=== PATIENT | male | born 1950 | race Caucasian/White ===

== ENCOUNTER 2018-04-18 12:44 | Emergency (ER) | payer OTHER ==
--- NOTE | 2018-04-18 13:49 | RAD REPORT ---
EXAM DESCRIPTION: RAD - Foot Left 3 View - 04/18/2018 1:34 pm CLINICAL HISTORY: Foot pain, blunt force trauma left first toe. COMPARISON: None. FINDINGS: A small 5 mm sized fracture is present at the medial base first proximal phalanx. There is a 1 mm or less of distraction. No other fracture confirmed in the first toe. There is small degenera tive spurring along the dorsal margin of the first distal phalanx base. Acute fracture at this site o r within the joint not confirmed. Contusion or edema changes surround the soft tissues. Injury to the toenail of the first toe is evide nt. No other fracture site. No dislocation or periosteal reaction. No pathologic process. Degenerativ e calcifications seen within the Achilles tendon at the attachment. No plantar spur. No air or foreign body in the soft tissues. IMPRESSION: Small fracture fragment is present 5 mm in size at the medial base first proximal phalan x.
[2018-04-18] MEDS ORDERED: HYDROCODONE/APAP 5/325 MG TAB ONE (14:29)
[2018-04-18] MEDS ORDERED: BUPIVACAINE 0.5% PF 10 ML VIAL ONE (15:20)
[2018-04-18] MEDS ORDERED: LIDOCAINE 1% 20 ML MDV ONE (15:20)
--- NOTE | 2018-04-18 16:11 | ER ---
Nurse's Notes [facility] Name: Castro Tam Age: 67 yrs Sex: Male : 1950 Arrival Date: 04/18/2018 Time: 12:51 Bed 11 Private MD: out of town, doctor Diagnosis: Contusion of left foot;Fracture of proximal phalanx of great toe;Avulsion of toenail Presentation: 04/18 13:07 Presenting complaint: Patient states: " I kicked the wall this morning." Swelling noted ph to L great toe, nail appears from bed, no bleeding noted. Transition of care: patient was not received from another setting of care. Onset of symptoms was April 18, 2018. Risk Assessment: Do you want to hurt yourself or someone else? Patient reports no desire to harm self or others. Initial Sepsis Screen: Does the patient meet any 2 criteria? No. Patient's initial sepsis screen is negative. Does the patient have a suspected source of infection? No. Patient's initial sepsis screen is negative. Care prior to arrival: None. 13:07 Method Of Arrival: Ambulatory ph 13:07 Acuity: MAXI 4 ph Historical: - Allergies: 13:10 PENICILLINS; ph 13:10 Azithromycin; ph 13:10 Clindamycin; ph 13:10 lampocil; ph - PSHx: 13:10 colon sx; Appendectomy; Knee surgery; ph - Immunization history:: Adult Immunizations unknown. - Social history:: Smoking status: Patient/guardian denies using tobacco. - Ebola Screening: : No symptoms or risks identified at this time. Screenin:17 Abuse screen: Denies threats or abuse. Denies injuries from another. Nutritional dm5 screening: No deficits noted. Tuberculosis screening: No symptoms or risk factors identified. Fall Risk None identified. Assessment: 14:29 Reassessment: Patient appears in no apparent distress at this time. Patient and/or iw family updated on plan of care and expected duration. Pain level reassessed. Patient is alert, oriented x 3, equal unlabored respirations, skin warm/dry/pink. 16:17 General: Appears in no apparent distress. comfortable, Behavior is calm, cooperative. dm5 Pain: Complains of pain in left first toe and Left first toenail Current management is with [place], marcaine, and lidocaine. Neuro: Level of Consciousness is awake, alert, obeys commands, Oriented to person, place, time. Cardiovascular: Capillary refill < 3 seconds Patient's skin is warm and dry. Respiratory: Airway is patent Respiratory effort is even, unlabored, relaxed, Respiratory pattern is regular, symmetrical. GI: No signs and/or symptoms were reported involving the gastrointestinal system. : No signs and/or symptoms were reported regarding the genitourinary system. EENT: No signs and/or symptoms were reported regarding the EENT system. Derm: Skin is pink, warm \\T\\ dry. Musculoskeletal: Circulation, motion, and sensation intact. Range of motion: intact in all extremities. Injury Description: Avulsion sustained to Left first toenail is complete. Vital Signs: 13:08 BP 157 / 77; Pulse 64; Resp 18; Temp 97.2; Pulse Ox 98% on R/A; Weight 102.06 kg; ph ED Course: 12:51 Patient arrived in ED. mr 12:51 out of town, doctor is Private Physician. mr 13:08 Triage completed. ph 13:10 Arm band placed on. ph 13:11 Pamela Quintana FNP-C is PHCP. snw 13:11 Jae Vickers MD is Attending Physician. snw 13:31 X-ray completed. Portable x-ray completed in exam room. Patient tolerated procedure jb2 well. 13:32 Foot Left 3 View XRAY In Process Unspecified. EDMS 14:05 Cheyenne Ivy, RN is Primary Nurse. iw 16:17 Patient has correct armband on for positive identification. Adult w/ patient. dm5 16:17 Assist provider with nail repair of avulsion of left great toe using excision of nail. dm5 Set up for procedure. Performed by Pamela SAUNDERS Dressed with tube gauze Xeroform Petrolatum Dressing Patient tolerated well. Patient did not have IV access during this emergency room visit. Administered Medications: 14:29 Drug: [place] 5 mg-325 mg 1 tabs Route: PO; iw 16:38 Follow up: Response: No adverse reaction; Pain is decreased dm5 14:30 Drug: Lidocaine (1 %) 5 mg {Note: administered by Pamela Quintana NP.} Route: dm5 Infiltration; 14:30 Drug: Marcaine (0.5 %) 10 ml {Note: administered by Pamela Quintana NP.} Volume: 10 dm5 ml; Route: Infiltration; 16:40 CANCELLED (wrong order): Marcaine (0.25 %) 10 ml Infiltration once dm5 Outcome: 16:11 Discharge ordered by MD. jones 16:17 Discharged to home ambulatory. dm5 16:17 Condition: good 16:17 Discharge instructions given to patient, family, Instructed on discharge instructions, follow up and referral plans. medication usage, Demonstrated understanding of instructions, follow-up care, medications, wound care, Prescriptions given X 2. 16:45 Patient left the ED. dm5 Signatures: Dispatcher [employer] EDMS Lexus Coronado, RN RN dm5 Pamela Quintana, FACULTY DEAN-C FACULTY DEAN-Halie Mckeon mr Mayers, Anthony albarran2 Cheyenne Ivy, RN Candelaria Mittal RN RN ph
--- NOTE | 2018-04-18 16:11 | EDPHYS ---
Physician Documentation [facility] Name: Castro Tam Age: 67 yrs Sex: Male : 1950 Arrival Date: 04/18/2018 Time: 12:51 Bed 11 Private MD: out of town, doctor ED Physician Jae Vickers HPI: 04/18 13:43 This 67 yrs old Male presents to ER via Ambulatory with complaints of Toe snw Injury. 13:43 The patient presents with an injury, pain, that is acute. The complaints affect the snw left foot. Context: The problem was sustained at home, resulted from the patient kicking, a wall, the patient can fully bear weight, the patient is able to ambulate. Onset: The symptoms/episode began/occurred suddenly, at 06:00, and became persistent today. Associated signs and symptoms: The patient has no apparent associated signs or symptoms. Severity of symptoms: At their worst the symptoms were moderate. The patient has experienced similar episodes in the past. The patient has not recently seen a physician. Historical: - Allergies: 13:10 PENICILLINS; ph 13:10 Azithromycin; ph 13:10 Clindamycin; ph 13:10 lampocil; ph - PSHx: 13:10 colon sx; Appendectomy; Knee surgery; ph - Immunization history:: Adult Immunizations unknown. - Social history:: Smoking status: Patient/guardian denies using tobacco. - Ebola Screening: : No symptoms or risks identified at this time. ROS: 13:43 Constitutional: Negative for fever, chills, and weight loss, Eyes: Negative for injury, snw pain, redness, and discharge, ENT: Negative for injury, pain, and discharge, Neck: Negative for injury, pain, and swelling, Cardiovascular: Negative for chest pain, palpitations, and edema, Respiratory: Negative for shortness of breath, cough, wheezing, and pleuritic chest pain, Abdomen/GI: Negative for abdominal pain, nausea, vomiting, diarrhea, and constipation, Back: Negative for injury and pain, : Negative for injury, bleeding, discharge, and swelling, Skin: Negative for injury, rash, and discoloration, Neuro: Negative for headache, weakness, numbness, tingling, and seizure. 13:43 MS/extremity: Positive for injury or acute deformity, contusion, tenderness, lifted toenail up. Exam: 13:41 Constitutional: This is a well developed, well nourished patient who is awake, alert, snw and in no acute distress. Head/Face: Normocephalic, atraumatic. Eyes: Pupils equal round and reactive to light, extra-ocular motions intact. Lids and lashes normal. Conjunctiva and sclera are non-icteric and not injected. Cornea within normal limits. Periorbital areas with no swelling, redness, or edema. ENT: Nares patent. No nasal discharge, no septal abnormalities noted. Tympanic membranes are normal and external auditory canals are clear. Oropharynx with no redness, swelling, or masses, exudates, or evidence of obstruction, uvula midline. Mucous membranes moist. Neck: Trachea midline, no thyromegaly or masses palpated, and no cervical lymphadenopathy. Supple, full range of motion without nuchal rigidity, or vertebral point tenderness. No Meningismus. Chest/axilla: Normal chest wall appearance and motion. Nontender with no deformity. No lesions are appreciated. Cardiovascular: Regular rate and rhythm with a normal S1 and S2. No gallops, murmurs, or rubs. Normal PMI, no JVD. No pulse deficits. Respiratory: Lungs have equal breath sounds bilaterally, clear to auscultation and percussion. No rales, rhonchi or wheezes noted. No increased work of breathing, no retractions or nasal flaring. Abdomen/GI: Soft, non-tender, with normal bowel sounds. No distension or tympany. No guarding or rebound. No evidence of tenderness throughout. Back: No spinal tenderness. No costovertebral tenderness. Full range of motion. Skin: Warm, dry with normal turgor. Normal color with no rashes, no lesions, and no evidence of cellulitis. Neuro: Awake and alert, GCS 15, oriented to person, place, time, and situation. Cranial nerves II-XII grossly intact. Motor strength 5/5 in all extremities. Sensory grossly intact. Cerebellar exam normal. Normal gait. Psych: Awake, alert, with orientation to person, place and time. Behavior, mood, and affect are within normal limits. 13:41 Musculoskeletal/extremity: Extremities: grossly normal except: noted in the left foot, kicked wall and toenail from nailbed, bleeding controlled, tender, toenail thick and longer than end of toe: contusion, ROM: no acute changes, Circulation is intact in all extremities. Sensation intact. Vital Signs: 13:08 BP 157 / 77; Pulse 64; Resp 18; Temp 97.2; Pulse Ox 98% on R/A; Weight 102.06 kg; ph Procedures: 16:43 Foreign Body Removal: great toenail removed, no bleeding, pt tolerated well, xeroform snw placed on area and tube gauze dressing placed. Post op shoe placed. Nerve block: (digital) of left first toe Medication: Lidocaine 1% without epinephrine Marcaine 0.5%, Amount: 8 mls were injected, Effect: the patient has resolution of the pain, Set up for procedure. Performed by Pamela SAUNDERS Patient tolerated well. MDM: 13:11 Patient medically screened. snw 16:12 Data reviewed: vital signs, nurses notes. Data interpreted: Pulse oximetry: on room air snw is 98 %. Interpretation: normal. Counseling: I had a detailed discussion with the patient and/or guardian regarding: the historical points, exam findings, and any diagnostic results supporting the discharge/admit diagnosis, the presence of at least one elevated blood pressure reading (>120/80) during this emergency department visit, radiology results, the need for outpatient follow up, to return to the emergency department if symptoms worsen or persist or if there are any questions or concerns that arise at home. Special discussion: I discussed in detail with the patient the higher chance of wound infection based on his presenting history. Based on the history and exam findings, there is no indication for further emergent testing or inpatient evaluation. I discussed with the patient/guardian the need to see the explosive ordnance disposal specialist for further evaluation of the symptoms. I discussed with the patient/guardian the need to see the primary care provider for further evaluation of the symptoms. I discussed with the patient/guardian the need to see the dry placer machine operator for further evaluation of the symptoms. 04/18 13:11 Order name: Foot Left 3 View XRAY; Complete Time: 14:11 snw 04/18 13:33 Order name: Misc. Order: please soak in hibiclens and warm water; Complete Time: 14:29 snw 04/18 16:07 Order name: Post-op Orthopedic Shoe; Complete Time: 16:16 snw Administered Medications: 14:29 Drug: [place] 5 mg-325 mg 1 tabs Route: PO; iw 16:38 Follow up: Response: No adverse reaction; Pain is decreased dm5 14:30 Drug: Lidocaine (1 %) 5 mg {Note: administered by Pamela Quintana NP.} Route: dm5 Infiltration; 14:30 Drug: Marcaine (0.5 %) 10 ml {Note: administered by Pamela Quintana NP.} Volume: 10 dm5 ml; Route: Infiltration; 16:40 CANCELLED (wrong order): Marcaine (0.25 %) 10 ml Infiltration once dm5 Disposition: 18:47 Co-signature as Attending Physician, Jae Vickers MD I agree with the assessment and kdr plan of care. Disposition: 04/18/18 16:11 Discharged to Home. Impression: Contusion of left foot, Fracture of proximal phalanx of great toe, Avulsion of toenail. - Condition is Stable. - Discharge Instructions: Contusion, Delayed Wound Closure, Toe Fracture, Toenail Removal. - Prescriptions for Tylenol- Codeine #3 300-30 mg Oral Tablet - take 2 tablets by ORAL route every 6 hours As needed; 15 tablet. Bactroban 2 % Topical Ointment - Apply to affected area 1 application by TOPICAL route every 12 hours; 15 gram. - Medication Reconciliation Form, Thank You Letter, Antibiotic Education, Prescription Opioid Use form. - Follow up: Emergency Department; When: As needed; Reason: Worsening of condition. Follow up: Private Physician; When: 1 week; Reason: Recheck today's complaints, Continuance of care. Signatures: Dispatcher [employer] Lexus Tavares, RN RN dm5 Jae Vickers MD MD kdr Therrien, Shelly, MOLDED CANDLES WICKER-C MOLDED CANDLES WICKER-Csnw Cheyenne Ivy, BRIDGET RN iw Candelaria Jin RN RN ph Corrections: (The following items were deleted from the chart) 16:40 16:39 Marcaine (0.25 %) 10 ml Infiltration once ordered. dm5 dm5 16:45 16:11 04/18/2018 16:11 Discharged to Home. Impression: Contusion of left foot; Fracture dm5 of proximal phalanx of great toe; Avulsion of toenail. Condition is Stable. Forms are Medication Reconciliation Form, Thank You Letter, Antibiotic Education, Prescription Opioid Use. Follow up: Emergency Department; When: As needed; Reason: Worsening of condition. Follow up: Private Physician; When: 1 week; Reason: Recheck today's complaints, Continuance of care. snw
== END 2018-04-18 16:45 | disposition home or self-care (01) ==
LOC: ER 12:44
PROC: 0HDRXZZ Extraction of Toe Nail, External Approach (ICD-10-PCS; principal; 2018-04-18)
DX: S92.412A Displaced fracture of proximal phalanx of left great toe, initial encounter for closed fracture (principal); S91.202A Unspecified open wound of left great toe with damage to nail, initial encounter; W22.8XXA Striking against or struck by other objects, initial encounter; Y93.89 Activity, other specified; Y92.009 Unspecified place in unspecified non-institutional (private) residence as the place of occurrence of the external cause; Z88.0 Allergy status to penicillin; Z88.1 Allergy status to other antibiotic agents; Z88.3 Allergy status to other anti-infective agents; Z88.8 Allergy status to other drugs, medicaments and biological substances
CPT/HCPCS: 64450; 99284

== ENCOUNTER 2019-12-24 05:12 | Emergency (ER) | payer OTHER ==
[2019-12-24] MEDS ORDERED: MEPERIDINE HCL 25 MG/0.5 ML ONE (05:41)
[2019-12-24] MEDS ORDERED: ONDANSETRON 4 MG/2 ML VIAL ONE ×2 (05:41→10:36)
[2019-12-24] MEDS ORDERED: MORPHINE 4 MG/ML SYR ONE ×2 (05:45→10:36)
[2019-12-24 05:53] LABS: Absolute Lymphocytes (CBC) 1.5 K/uL (0.7-4.9); Basophils % 0.6 % (0-1.3); Hematocrit 42.6 % (39.6-49.0); MPV 9.6 fL (7.6-11.3); RBC Red Blood Cell Count 5.04 M/uL (4.33-5.43)
[2019-12-24 06:41] LABS: ALT/SGPT 121 U/L (12-78); AST/SGOT 158 U/L (15-37); Albumin 3.7 g/dL (3.4-5.0); Alkaline Phosphatase 89 U/L (45-117); BUN Blood Urea Nitrogen 17 mg/dL (7-18); Bicarbonate 29 mmol/L (21-32); Bilirubin Total 1.5 mg/dL (0.2-1.0); Glucose Level 105 mg/dL (74-106); Lipase 1473 U/L (73-393); Potassium 4.2 mmol/L (3.5-5.1); Protein, Total 7.6 g/dL (6.4-8.2); Sodium Level 139 mmol/L (136-145); Troponin (Emerg Dept Use Only) < 0.02 ng/mL (0.0-0.045)
--- NOTE | 2019-12-24 07:26 | RAD REPORT ---
EXAM DESCRIPTION: US - Abdomen Exam Limited - 12/24/2019 7:00 am CLINICAL HISTORY: RUQ abd pain COMPARISON: No comparisons FINDINGS: The gallbladder demonstrates multiple shadowing gallstones. The gallbladder appears mildly distended. No pericholecystic fluid or gallbladder wall thickening. The common bile duct is upper li deb of normal measuring 6-7 mm. The liver demonstrates no findings of intrahepatic biliary dilatation. IMPRESSION: Cholelithiasis.
--- NOTE | 2019-12-24 08:36 | RAD REPORT ---
EXAM DESCRIPTION: CTAbdomen Pelvis W Contrast - 12/24/2019 7:56 am CLINICAL HISTORY: Abdominal pain. upper abd pain;Abd pain COMPARISON: Abdomen Exam Limited dated 12/24/2019 TECHNIQUE: Biphasic CT imaging of the abdomen and pelvis was performed with 100 ml non-ionic IV cont rast. All CT scans are performed using dose optimization technique as appropriate and may include automated exposure control or mA/KV adjustment according to patient size. FINDINGS: The lung bases are clear. Mild diffuse fatty liver is present. Small low-density liver lesions are present probably representin g cysts but incompletely characterized. Cholelithiasis is seen. Slight thickening the gallbladder wal l suspected. The spleen, pancreas, adrenal glands and kidneys show no acute finding. Prominent inferi or right renal cyst with septations noted measuring 8-9 cm in size. No bowel obstruction, free air, free fluid or abscess. The appendix is not identified as a discrete structure, however, no secondary findings of appendicitis are identified. No evidence of significan t lymphadenopathy. 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 IMPRESSION: Cholelithiasis is seen with slight gallbladder wall thickening suspected. HIDA scan may be of value for further assessment. Large, mildly septated, inferior right renal cyst is present.
--- NOTE | 2019-12-24 09:22 | EKG ---
Test Date: 2019-12-24 Test Time: 05:30:24 Glass Mold Repairer: HOLDEN MEASUREMENT RESULTS: Intervals: Rate: 74 GA: 196 QRSD: 102 QT: 390 QTc: 432 [place]: P: 54 GA: 196 QRS: 23 T: 51 INTERPRETIVE STATEMENTS: Sinus rhythm with occasional premature ventricular complexes Otherwise normal ECG No previous ECG available for comparison Electronically Signed On 12-24-19 09:22:24 CHIEF PILOT by Jules Padilla
--- NOTE | 2019-12-24 11:02 | ER ---
Nurse's Notes [facility] Name: Castro Tam Age: 69 yrs Sex: Male : 1950 Arrival Date: 12/24/2019 Time: 05:13 Bed 17 Private MD: Diagnosis: Abdominal and pelvic pain;Cholelithiasis Presentation: 12/24 05:20 Presenting complaint: Patient states: C?O RUQ pain radiating to the back for the last 2 days progressively getting worse. Pt denies fever, diarrhea, vomiting and chest pain. Associated symptoms of nausea. Transition of care: patient was not received from another setting of care. Onset of symptoms was December 24, 2019. Risk Assessment: Do you want to hurt yourself or someone else? Patient reports no desire to harm self or others. Initial Sepsis Screen: Does the patient meet any 2 criteria? No. Patient's initial sepsis screen is negative. Does the patient have a suspected source of infection? No. Patient's initial sepsis screen is negative. Care prior to arrival: None. 05:20 Method Of Arrival: Ambulatory 05:20 Acuity: MAXI 3 Historical: - Allergies: 05:54 Azithromycin; 05:54 Clindamycin; 05:54 lampocil; 05:54 PENICILLINS; - Home Meds: 05:54 None [Active]; - PMHx: 05:54 Diverticulitis; - PSHx: 05:54 Appendectomy; Explore Lap; - Immunization history:: Adult Immunizations not up to date. - Coronavirus screen:: The patient has NOT traveled to [place] in the past 14 days. - Family history:: not pertinent. - Social history:: Smoking status: Patient/guardian denies using. - Hospitalizations: : No recent hospitalization is reported. - Ebola Screening: : Patient negative for fever greater than or equal to 101.5 degrees Fahrenheit, and additional compatible Ebola Virus Disease symptoms Patient denies exposure to infectious person. Screenin:30 Abuse screen: Denies threats or abuse. Denies injuries from another. Nutritional screening: No deficits noted. Tuberculosis screening: No symptoms or risk factors identified. Fall Risk None identified. Assessment: 05:30 General: Appears in no apparent distress. Behavior is calm, cooperative, appropriate wh for age. Pain: Complains of pain in right upper quadrant Pain radiates to back Pain currently is 6 out of 10 on a pain scale. Quality of pain is described as aching, Pain began 2-3 days ago. Neuro: Level of Consciousness is awake, alert, obeys commands, Oriented to person, place, time, situation, Appropriate for age. Cardiovascular: Heart tones S1 S2 Rhythm is regular. Respiratory: Airway is patent Respiratory effort is even, unlabored, Respiratory pattern is regular, symmetrical, Breath sounds are clear bilaterally. GI: Abdomen is flat, non-distended, Abd is soft Abdomen is tender to palpation in right upper quadrant. : No signs and/or symptoms were reported regarding the genitourinary system. EENT: No signs and/or symptoms were reported regarding the EENT system. Derm: Skin is intact, is healthy with good turgor, Skin is pink, warm \T\ dry. normal. Musculoskeletal: Circulation, motion, and sensation intact. 06:16 Reassessment: Notified CT Pt finished oral contrasr. 06:48 Reassessment: Patient appears in no apparent distress at this time. No changes from previously documented assessment. Patient and/or family updated on plan of care and expected duration. Pain level reassessed. Patient is alert, oriented x 3, equal unlabored respirations, skin warm/dry/pink. Ultrasound at bedside. 07:00 Reassessment: RECD REPORT FROM [facility]ILL. 69YO WM P/W RUQ PAIN. CT ABD/PELVIS PENDING. bp 08:30 Reassessment: PT RETURNED FROM CT. ALL CURRENT ORDERS COMPLETED, RESULTS PENDING. NO bp S/S ACUTE DISTRESS AT THIS TIME. 09:49 Reassessment: DR CARRILLO AT B/S. bp 10:36 Reassessment: DISPO ON HOLD FOR GI C/S. PT C/O PAIN, MEDICATED ORDERED. bp 11:09 Reassessment: TRANSFER INITIATED FOR GI. bp 11:49 Reassessment: TRANSFER IN PROCESS, ADMIN PENDING. bp 13:17 Reassessment: REPORT TO RUT DELGADO RN FOR ROOM 2110, TRANSPORT PENDING. bp 14:10 Reassessment: EMS AT B/S. PT YUN. bp Vital Signs: 05:30 BP 216 / 97; Pulse 78; Resp 18; Temp 97.9; Pulse Ox 99% on R/A; Weight 104.33 kg; wh Height 5 ft. 10 in. (177.80 cm); Pain 6/10; 05:45 BP 159 / 87; wh 06:48 BP 165 / 80; Pulse 83; Resp 18; Pulse Ox 97% ; wh 07:30 BP 165 / 87; Pulse 77; Resp 16; Pulse Ox 98% ; bp 08:30 BP 182 / 88; Pulse 74; Resp 19; Pulse Ox 99% ; bp 10:02 BP 171 / 85; Pulse 74; Resp 16; Pulse Ox 97% ; bp 10:36 BP 149 / 76; Pulse 81; Resp 16; Pulse Ox 94% ; bp 11:49 BP 174 / 80; Pulse 79; Resp 15; Pulse Ox 95% ; bp 13:17 BP 155 / 61; Pulse 76; Resp 16; Pulse Ox 100% ; bp 14:13 BP 152 / 74; Pulse 83; Resp 16; Temp 98; Pulse Ox 95% ; bp 05:30 Body Mass Index 33.00 (104.33 kg, 177.80 cm) ED Course: 05:13 Patient arrived in ED. ag3 05:14 Chang Bhakta is Primary Nurse. 05:15 Gustavo Green MD is Attending Physician. rn 05:40 Inserted saline lock: 20 gauge in right antecubital area, using aseptic technique. Blood collected. Patient maintains SpO2 saturation greater than 95% on room air. 05:50 Triage completed. 05:54 Arm band placed on left wrist. 05:54 Patient has correct armband on for positive identification. Placed in gown. Bed in low wh position. Call light in reach. Side rails up X 1. Pulse ox on. NIBP on. 09:00 Attending Physician role handed off by Gustavo Green MD kdr 09:00 Jae Vickers MD is Attending Physician. kdr 13:17 No provider procedures requiring assistance completed. Patient transferred, IV remains bp in place. IV discontinued, bleeding controlled, No redness/swelling at site. Pressure dressing applied. Administered Medications: 05:45 Drug: morphine 4 mg Route: IVP; Site: right antecubital; wh 10:35 Follow up: Response: Pain is decreased bp 05:47 Drug: Zofran 4 mg Route: IVP; Site: right antecubital; wh 10:35 Follow up: Response: No adverse reaction bp 05:47 Not Given (Patient Refused): Demerol 25 mg IVP once; RASS on ADMIN: Combtv4, Very wh Agttd3, Agttd2, Rstlss1, AlertClm0, Drwsy-1, Lt Sdtn-2, Mod Sdtn-3, Dp Sdtn-4, UnArsble-5 10:35 Drug: morphine 4 mg Route: IVP; Site: right antecubital; bp 14:11 Follow up: Response: Pain is decreased bp 10:35 Drug: Zofran 4 mg Route: IVP; Site: right antecubital; bp 14:11 Follow up: Response: No adverse reaction bp 11:37 Drug: NS 0.9% 500 ml Route: IV; Rate: bolus; Site: right antecubital; bp 14:11 Follow up: IV Status: Completed infusion; IV Intake: 500ml bp 11:37 Drug: NS 0.9% 1000 ml Route: IV; Rate: 125 ml/hr; Site: right antecubital; bp 14:12 Follow up: IV Status: Completed infusion bp 11:37 Drug: Promethazine 12.5 mg Route: IVP; Site: right antecubital; bp 14:12 Follow up: Response: Nausea is decreased bp 12:53 Drug: Dilaudid 1 mg Route: IVP; Site: right antecubital; bp 14:12 Follow up: Response: Pain is decreased bp Intake: 14:11 IV: 500ml; Total: 500ml. bp Outcome: 11:01 ER care complete, transfer ordered by . kdr 14:10 Transferred by ground EMS to [facility]. bp 14:10 Condition: stable 14:10 Instructed on the need for transfer. 14:13 Patient left the ED. bp Signatures: Jae Vickers MD MD kdr Gustavo Green MD MD rn Habalo, Winsy wh Peltier, Brian, RN RN Vida Schmidt Corrections: (The following items were deleted from the chart) 06:52 05:30 BP 216 / 97; Pulse 78bpm; Resp 18bpm; Pulse Ox 99% RA; Temp 98.2F; 104.33 kg; wh Height 5 ft. 10 in.; BMI: 33.0; Pain 6/10; wh
--- NOTE | 2019-12-24 11:03 | EDPHYS ---
Physician Documentation [facility] Name: Castro Tam Age: 69 yrs Sex: Male : 1950 Arrival Date: 12/24/2019 Time: 05:13 Bed 17 Private MD: ED Physician Jae Vickers HPI: 12/24 05:23 This 69 yrs old Male presents to ER via Unassigned with complaints of abd rn pain. 05:23 The patient presents with abdominal pain in the right upper quadrant. Onset: The rn symptoms/episode began/occurred 2 day(s) ago. The symptoms radiate to The symptoms are described as crampy, intermittent. Modifying factors: The symptoms are alleviated by nothing, the symptoms are aggravated by movement, touching the area. Severity of pain: At its worst the pain was moderate in the emergency department the pain is unchanged. The patient has experienced similar episodes in the past. Reports right sided mid-upper abd pain, assoc with nausea, intermittent for 2 days, no fever, not worse with eating but + decreased appetite. NO blood in stool. Reports hx of diverticulitis x2 with abscesses in past, but no issues since 2001.. Historical: - Allergies: 05:54 Azithromycin; 05:54 Clindamycin; 05:54 lampocil; 05:54 PENICILLINS; - Home Meds: 05:54 None [Active]; - PMHx: 05:54 Diverticulitis; - PSHx: 05:54 Appendectomy; Explore Lap; - Immunization history:: Adult Immunizations not up to date. - Coronavirus screen:: The patient has NOT traveled to [place] in the past 14 days. - Family history:: not pertinent. - Social history:: Smoking status: Patient/guardian denies using. - Hospitalizations: : No recent hospitalization is reported. - Ebola Screening: : Patient negative for fever greater than or equal to 101.5 degrees Fahrenheit, and additional compatible Ebola Virus Disease symptoms Patient denies exposure to infectious person. ROS: 05:23 Constitutional: Negative for fever, chills, and weight loss, Eyes: Negative for injury, rn pain, redness, and discharge, Neck: Negative for injury, pain, and swelling, Cardiovascular: Negative for chest pain, palpitations, and edema, Respiratory: Negative for shortness of breath, cough, wheezing, and pleuritic chest pain, Abdomen/GI: Negative for vomiting, diarrhea, and constipation, : Negative for injury, bleeding, discharge, and swelling, MS/Extremity: Negative for injury and deformity, Skin: Negative for injury, rash, and discoloration, Neuro: Negative for headache, weakness, numbness, tingling, and seizure. Exam: 05:23 Constitutional: This is a well developed, well nourished patient who is awake, alert, rn and in no acute distress. Ambulatory to room without difficulty Head/Face: Normocephalic, atraumatic. ENT: MMM Cardiovascular: Regular rate and rhythm. No pulse deficits. Respiratory: No increased work of breathing, no retractions or nasal flaring. Abdomen/GI: soft, + epigastric and RUQ tenderness with guarding, no rebound MS/ Extremity: Pulses equal, no cyanosis. Neurovascular intact. Full, normal range of motion. Equal circumference. Neuro: Awake and alert, GCS 15, oriented to person, place, time, and situation. Cranial nerves II-XII grossly intact. Motor strength 5/5 in all extremities. Sensory grossly intact. Cerebellar exam normal. Normal gait. Vital Signs: 05:30 BP 216 / 97; Pulse 78; Resp 18; Temp 97.9; Pulse Ox 99% on R/A; Weight 104.33 kg; wh Height 5 ft. 10 in. (177.80 cm); Pain 6/10; 05:45 BP 159 / 87; wh 06:48 BP 165 / 80; Pulse 83; Resp 18; Pulse Ox 97% ; wh 07:30 BP 165 / 87; Pulse 77; Resp 16; Pulse Ox 98% ; bp 08:30 BP 182 / 88; Pulse 74; Resp 19; Pulse Ox 99% ; bp 10:02 BP 171 / 85; Pulse 74; Resp 16; Pulse Ox 97% ; bp 10:36 BP 149 / 76; Pulse 81; Resp 16; Pulse Ox 94% ; bp 11:49 BP 174 / 80; Pulse 79; Resp 15; Pulse Ox 95% ; bp 13:17 BP 155 / 61; Pulse 76; Resp 16; Pulse Ox 100% ; bp 14:13 BP 152 / 74; Pulse 83; Resp 16; Temp 98; Pulse Ox 95% ; bp 05:30 Body Mass Index 33.00 (104.33 kg, 177.80 cm) wh MDM: 05:15 Patient medically screened. rn 09:01 Data reviewed: vital signs, nurses notes, lab test result(s), radiologic studies. kdr Counseling: I had a detailed discussion with the patient and/or guardian regarding: the historical points, exam findings, and any diagnostic results supporting the discharge/admit diagnosis, lab results, radiology results. ED course: The patient is resting comfortably at this time and not requiring any intervention. 09:38 ED course: The patient continues to rest comfortably and not require any intervention kdr at this time. I have d/w the patient and family the current findings. They had no questions and . 11:01 ED course: D/w Dr. Cervantes, Dr. Cm (not retail loss prevention specialist) - since GI not available, will kdr require transfer for complete evaluation. 12/24 05:22 Order name: Basic Metabolic Panel rn 12/24 05:22 Order name: CBC with Diff rn 12/24 05:22 Order name: Creatinine for burning supervisor 12/24 05:22 Order name: Hepatic Function rn 12/24 05:22 Order name: Lipase rn 12/24 05:22 Order name: Troponin (emerg Dept Use Only) rn 12/24 05:22 Order name: CT Abd/Pelvis - PO and IV Contrast rn 12/24 05:27 Order name: US Abdomen Limited rn 12/24 06:01 Order name: CBC with Automated Diff; Complete Time: 06:23 EDMS 12/24 06:05 Order name: Creatinine (Radiology Only); Complete Time: 06:23 EDMS 12/24 06:43 Order name: Basic Metabolic Panel; Complete Time: 06:43 EDMS 12/24 06:43 Order name: Liver (Hepatic) Function; Complete Time: 06:43 EDMS 12/24 06:43 Order name: Troponin (Emerg Dept Use Only); Complete Time: 06:43 EDMS 12/24 06:43 Order name: Lipase; Complete Time: 06:43 EDMS 12/24 05:22 Order name: IV Saline Lock; Complete Time: 05:48 rn 12/24 05:22 Order name: Labs collected and sent; Complete Time: 05:48 rn 12/24 05:22 Order name: EKG; Complete Time: 05:23 rn 12/24 05:22 Order name: EKG - Nurse/Tech; Complete Time: 05:47 rn 12/24 07:27 Order name: US; Complete Time: 09:01 EDMS 12/24 09:50 Order name: CT; Complete Time: 12:02 EDMS Administered Medications: 05:45 Drug: morphine 4 mg Route: IVP; Site: right antecubital; 10:35 Follow up: Response: Pain is decreased bp 05:47 Drug: Zofran 4 mg Route: IVP; Site: right antecubital; wh 10:35 Follow up: Response: No adverse reaction bp 05:47 Not Given (Patient Refused): Demerol 25 mg IVP once; RASS on ADMIN: Combtv4, Very wh Agttd3, Agttd2, Rstlss1, AlertClm0, Drwsy-1, Lt Sdtn-2, Mod Sdtn-3, Dp Sdtn-4, UnArsble-5 10:35 Drug: morphine 4 mg Route: IVP; Site: right antecubital; bp 14:11 Follow up: Response: Pain is decreased bp 10:35 Drug: Zofran 4 mg Route: IVP; Site: right antecubital; bp 14:11 Follow up: Response: No adverse reaction bp 11:37 Drug: NS 0.9% 500 ml Route: IV; Rate: bolus; Site: right antecubital; bp 14:11 Follow up: IV Status: Completed infusion; IV Intake: 500ml bp 11:37 Drug: NS 0.9% 1000 ml Route: IV; Rate: 125 ml/hr; Site: right antecubital; bp 14:12 Follow up: IV Status: Completed infusion bp 11:37 Drug: Promethazine 12.5 mg Route: IVP; Site: right antecubital; bp 14:12 Follow up: Response: Nausea is decreased bp 12:53 Drug: Dilaudid 1 mg Route: IVP; Site: right antecubital; bp 14:12 Follow up: Response: Pain is decreased bp Disposition: 12/24/19 11:01 Transfer ordered to [facility]. Diagnosis are Abdominal and pelvic pain, Cholelithiasis. - Reason for transfer: Higher level of care. - Accepting physician is [facility]. - Condition is Stable. - Problem is new. - Symptoms have improved. Signatures: Dispatcher [employer] Jae Chadwick MD MD kdr Gustavo Green MD MD rn Chang Bhakta Brian, RN RN bp Corrections: (The following items were deleted from the chart) 14:13 11:01 12/24/2019 11:01 Transfer ordered to [facility]. bp Diagnosis is Abdominal and pelvic pain; Cholelithiasis. Reason for transfer: Higher level of care. Accepting physician is [facility]. Condition is Stable. Problem is new. Symptoms have improved. kdr
[2019-12-24] MEDS ORDERED: PROMETHAZINE INJ 25 MG/ML AMP ONE (11:35)
[2019-12-24] MEDS ORDERED: NA CHLORIDE 0.9% 1,000 ML ONE (11:35)
[2019-12-24] MEDS ORDERED: METOCLOPRAMIDE 10 MG/2mL INJ ONE (12:35)
[2019-12-24] MEDS ORDERED: NA CHLORIDE 0.9% 100 ML IV ONE (12:49)
[2019-12-24] MEDS ORDERED: HYDROMORPHONE HCL 1 MG/ML INJ ONE (12:49)
[2019-12-25 08:56] VITALS: BP 152/74; TEMP 98; O2SAT 95
== END 2019-12-24 14:13 | disposition short-term general hospital (02) ==
LOC: ER 05:12
DX: K80.20 Calculus of gallbladder without cholecystitis without obstruction (principal); R10.2 Pelvic and perineal pain; Z88.0 Allergy status to penicillin; Z88.1 Allergy status to other antibiotic agents; Z88.8 Allergy status to other drugs, medicaments and biological substances
CPT/HCPCS: 96361; 93005; 85025; 80048; 36415; 80076; 84484; 83690; 74177; 76705; 96375; 96374; 99285; Q9967; J2765; J2550; J2175; J1170; J7030; J2405 ×2

== ENCOUNTER 2022-02-15 22:11 | Emergency (ER) | payer OTHER ==
--- OUTSIDE RECORDS SUMMARY | 2022-02-15 22:15 | XMS REPORT | Continuity of Care Document ---
:1950 Author Organization [facility] t Address [address] [place] [address] [address]. [address] [place] [address] Care Team Providers Name Role Phone PRADEEP FALL Attending Clinician Unavailable LEE, DEEPTI Admitting Clinician Unavailable Problems This patient has no known problems. Allergies, Adverse Reactions, Alerts This patient has no known allergies or adverse reactions. Medications This patient has no known medications. Procedures This patient has no known procedures. Results Test Description Test Time Test Comments Results Result Comments Source AFB CULTURE + SMEAR (NON-SPUTUM) 2020-02-15 13:35:00 Test Item Value Reference Range Interpretation Comme nts CULTURE (BEAKER) (test code = 1095) No acid-fast bacilli isolated i n 42 days AFB SMEAR (BEAKER) (test code = 994) No acid fast bacilli seen FUNGUS CULTURE + [id number] 17:59:00 Test Item Value Reference Range Interpretation Comments CULTURE (BEAKER) (test No fungus isolated in code = 1095) 28 days SURGICALLY OBTAINED CULTURE + GRAM [id number] 10:10:00 Test Item Value Reference Range Interpretation Comments CULTURE (BEAKER) (test code No growth = 1095) GRAM STAIN RESULT (BEAKER) 1+ WBCs (test code = 1123) GRAM STAIN RESULT (BEAKER) No organisms seen (test code = 34177) ANAEROBIC [id number] 17:05:00 Test Item Value Reference Range Interpretation Comments CULTURE (BEAKER) (test No anaerobes isolated code = 1095) TISSUE [id number] 11:08:00Surgical Pathology Report Case: [id number] Authorizing Provider: Aurea Mcbride MD Collected: 12/29/2019 1149 Ordering Location: [facility] Received: 12/29/2019 1339 SERVICES Pathologist: Alissa Zheng MD Specimen: Gallbladder A. GALLBLADDER, CHOLECYSTECTOMY: - CHRONIC CHOLECYSTITIS WITH CHOLELITHIASIS. Signing Pathologist Direct Phone Line: [phone] signed by Alissa Zheng MD on 12/31/2019 at 11:08 [id number] and postop diagnosis: Gallstones, pancreatitis Gallbladder Received fresh labeled with the patient's name, accession number and "gallbladder" is a disrupted gallbladder measuring 10 x 3 x 1.7 cm. The area of disruption is in the fundus and measures 0.7 x 0.1 cm. The cystic duct is clipped. The serosa is red-pink and smooth to shaggy. A cystic duct lymph node is not present. The specimen is opened to reveal multiple (greater than 50) irregular black choleliths ranging 0.3-1 cm. The mucosa is fuentes-pink and flattened. The wall thickness ranges 0.1-0.3 cm. No gross lesions are identified. Kiln Placer sections are submitted. Section code: A1, cystic duct margin en face; A2, gallbladder wall. CG/pl Performed.[facility], Department of Pathology, [address] [place] [id number], [facility] [place], [facility] of [facility], [address] [place] [address], [facility] [place], Department of Pathology, [address] [place] [address], [id number] METABOLIC [id number] 08:52:00 Test Item Value Reference Range Interpretation Comments TOTAL PROTEIN 5.7 gm/dL 6.0-8.3 L (BEAKER) (test code = 770) ALBUMIN (BEAKER) 2.8 g/dL 3.5-5.0 L (test code = 1145) ALKALINE PHOSPHATASE 66 U/L 40-150 (BEAKER) (test code = 346) BILIRUBIN TOTAL 1.0 mg/dL 0.2-1.2 (BEAKER) (test code = 377) SODIUM (BEAKER) (test 137 meq/L 136-145 code = 381) POTASSIUM (BEAKER) 3.6 meq/L 3.5-5.1 (test code = 379) CHLORIDE (BEAKER) 104 meq/L 98-107 (test code = 382) CO2 (BEAKER) (test 25 meq/L 22-29 code = 355) BLOOD UREA NITROGEN 12 mg/dL 7-21 (BEAKER) (test code = 354) CREATININE (BEAKER) 0.71 mg/dL 0.57-1.25 (test code = 358) GLUCOSE RANDOM 125 mg/dL 70-105 H (BEAKER) (test code = 652) CALCIUM (BEAKER) 7.7 mg/dL 8.4-10.2 L (test code = 697) AST (SGOT) (BEAKER) 51 U/L 5-34 H (test code = 353) ALT (SGPT) (BEAKER) 74 U/L 6-55 H (test code = 347) EGFR (BEAKER) (test INSUFFIC IENT CLINICAL code = 1092) DATA TO CALCULA TE ESTIMATED GFR. [employer] ID - GALAPBILIRUBIN, [id number] 08:47:00 Test Item Value Reference Range Interpretation Comments BILIRUBIN DIRECT (BEAKER) (test 0.7 mg/dL 0.1-0.5 H code = 706) [employer] ID - GALAPBLOOD [id number] 23:00:00 Test Item Value Reference Range Interpretation Comments CULTURE (BEAKER) (test No growth in 5 days code = 1095) BLOOD [id number] 23:00:00 Test Item Value Reference Range Interpretation Comments CULTURE (BEAKER) (test No growth in 5 days code = 1095) SPIN/CONCENTRATION [id number] 16:44:00 Test Item Value Reference Range Interpretation Comments CONCENTRATION CHARGED (BEAKER) (test Done code = 2657) COMPREHENSIVE METABOLIC [id number] 06:13:00 Test Item Value Reference Range Interpretation Comments TOTAL PROTEIN 5.6 gm/dL 6.0-8.3 L (BEAKER) (test code = 770) ALBUMIN (BEAKER) 2.8 g/dL 3.5-5.0 L (test code = 1145) ALKALINE PHOSPHATASE 64 U/L 40-150 (BEAKER) (test code = 346) BILIRUBIN TOTAL 1.2 mg/dL 0.2-1.2 (BEAKER) (test code = 377) SODIUM (BEAKER) (test 139 meq/L 136-145 code = 381) POTASSIUM (BEAKER) 3.6 meq/L 3.5-5.1 (test code = 379) CHLORIDE (BEAKER) 107 meq/L 98-107 (test code = 382) CO2 (BEAKER) (test 25 meq/L 22-29 code = 355) BLOOD UREA NITROGEN 17 mg/dL 7-21 (BEAKER) (test code = 354) CREATININE (BEAKER) 0.78 mg/dL 0.57-1.25 (test code = 358) GLUCOSE RANDOM 122 mg/dL 70-105 H (BEAKER) (test code = 652) CALCIUM (BEAKER) 7.4 mg/dL 8.4-10.2 L (test code = 697) AST (SGOT) (BEAKER) 78 U/L 5-34 H (test code = 353) ALT (SGPT) (BEAKER) 85 U/L 6-55 H (test code = 347) EGFR (BEAKER) (test INSUFFIC IENT CLINICAL code = 1092) DATA TO CALCULA TE ESTIMATED GFR. [employer] Dean ID - [id number] 06:03:00 Test Item Value Reference Range Interpretation Comments PHOSPHORUS (BEAKER) (test code = 2.3 mg/dL 2.3-4.7 604) [employer] ID - [id number] 06:03:00 Test Item Value Reference Range Interpretation Comments MAGNESIUM (BEAKER) (test code = 2.0 mg/dL 1.6-2.6 627) [employer] ID - DBBILIRUBIN, [id number] 06:03:00 Test Item Value Reference Range Interpretation Comments BILIRUBIN DIRECT (BEAKER) (test 0.8 mg/dL 0.1-0.5 H code = 706) [employer] ID - DBCBC W/PLT COUNT & AUTO [id number] 05:11:00 Test Item Value Reference Range Interpretation Comments WHITE BLOOD CELL COUNT (BEAKER) 11.6 K/ L 3.5-10.5 H (test code = 775) RED BLOOD CELL COUNT (BEAKER) 3.94 M/ L 4.63-6.08 L (test code = 761) HEMOGLOBIN (BEAKER) (test code = 11.2 GM/DL 13.7-17.5 L 410) HEMATOCRIT (BEAKER) (test code = 34.6 % 40.1-51.0 L 411) MEAN CORPUSCULAR VOLUME (BEAKER) 87.8 fL 79.0-92.2 (test code = 753) MEAN CORPUSCULAR HEMOGLOBIN 28.4 pg 25.7-32.2 (BEAKER) (test code = 751) MEAN CORPUSCULAR HEMOGLOBIN CONC 32.4 GM/DL 32.3-36.5 (BEAKER) (test code = 752) RED CELL DISTRIBUTION WIDTH 14.3 % 11.6-14.4 (BEAKER) (test code = 412) PLATELET COUNT (BEAKER) (test 187 K/CU MM 150-450 code = 756) MEAN PLATELET VOLUME (BEAKER) 10.6 fL 9.4-12.4 (test code = 754) NUCLEATED RED BLOOD CELLS 0 /100 WBC 0-0 (BEAKER) (test code = 413) NEUTROPHILS RELATIVE PERCENT 74 % (BEAKER) (test code = 429) LYMPHOCYTES RELATIVE PERCENT 9 % (BEAKER) (test code = 430) MONOCYTES RELATIVE PERCENT 12 % (BEAKER) (test code = 431) EOSINOPHILS RELATIVE PERCENT 1 % (BEAKER) (test code = 432) BASOPHILS RELATIVE PERCENT 0 % (BEAKER) (test code = 437) NEUTROPHILS ABSOLUTE COUNT 8.58 K/ L 1.78-5.38 H (BEAKER) (test code = 670) LYMPHOCYTES ABSOLUTE COUNT 1.03 K/ L 1.32-3.57 L (BEAKER) (test code = 414) MONOCYTES ABSOLUTE COUNT (BEAKER) 1.35 K/ L 0.30-0.82 H (test code = 415) EOSINOPHILS ABSOLUTE COUNT 0.15 K/ L 0.04-0.54 (BEAKER) (test code = 416) BASOPHILS ABSOLUTE COUNT (BEAKER) 0.04 K/ L 0.01-0.08 (test code = 417) IMMATURE GRANULOCYTES-RELATIVE 4 % 0-1 H PERCENT (BEAKER) (test code = 2801) COMPREHENSIVE METABOLIC [id number] 05:26:00 Test Item Value Reference Range Interpretation Comments TOTAL PROTEIN 5.7 gm/dL 6.0-8.3 L (BEAKER) (test code = 770) ALBUMIN (BEAKER) 2.9 g/dL 3.5-5.0 L (test code = 1145) ALKALINE PHOSPHATASE 65 U/L 40-150 (BEAKER) (test code = 346) BILIRUBIN TOTAL 1.3 mg/dL 0.2-1.2 H (BEAKER) (test code = 377) SODIUM (BEAKER) (test 138 meq/L 136-145 code = 381) POTASSIUM (BEAKER) 3.4 meq/L 3.5-5.1 L (test code = 379) CHLORIDE (BEAKER) 105 meq/L 98-107 (test code = 382) CO2 (BEAKER) (test 26 meq/L 22-29 code = 355) BLOOD UREA NITROGEN 19 mg/dL 7-21 (BEAKER) (test code = 354) CREATININE (BEAKER) 0.75 mg/dL 0.57-1.25 (test code = 358) GLUCOSE RANDOM 119 mg/dL 70-105 H (BEAKER) (test code = 652) CALCIUM (BEAKER) 7.6 mg/dL 8.4-10.2 L (test code = 697) AST (SGOT) (BEAKER) 28 U/L 5-34 (test code = 353) ALT (SGPT) (BEAKER) 62 U/L 6-55 H (test code = 347) EGFR (BEAKER) (test INSUFFIC IENT CLINICAL code = 1092) DATA TO CALCULA TE ESTIMATED GFR. [employer] Dean ID - CHARLI [id number] 05:24:00 Test Item Value Reference Range Interpretation Comments PHOSPHORUS (BEAKER) (test code = 1.7 mg/dL 2.3-4.7 L 604) [employer] Dean ID - CHARLI [id number] 05:24:00 Test Item Value Reference Range Interpretation Comments MAGNESIUM (BEAKER) (test code = 2.0 mg/dL 1.6-2.6 627) [employer] Dean ID - CHARLI MBILIRUBIN, [id number] 05:24:00 Test Item Value Reference Range Interpretation Comments BILIRUBIN DIRECT (BEAKER) (test 0.9 mg/dL 0.1-0.5 H code = 706) [employer] Dean ID - CHARLI MCBC W/PLT COUNT & AUTO [id number] 04:44:00 Test Item Value Reference Range Interpretation Comments WHITE BLOOD CELL COUNT (BEAKER) 13.7 K/ L 3.5-10.5 H (test code = 775) RED BLOOD CELL COUNT (BEAKER) 4.01 M/ L 4.63-6.08 L (test code = 761) HEMOGLOBIN (BEAKER) (test code = 11.5 GM/DL 13.7-17.5 L 410) HEMATOCRIT (BEAKER) (test code = 34.6 % 40.1-51.0 L 411) MEAN CORPUSCULAR VOLUME (BEAKER) 86.3 fL 79.0-92.2 (test code = 753) MEAN CORPUSCULAR HEMOGLOBIN 28.7 pg 25.7-32.2 (BEAKER) (test code = 751) MEAN CORPUSCULAR HEMOGLOBIN CONC 33.2 GM/DL 32.3-36.5 (BEAKER) (test code = 752) RED CELL DISTRIBUTION WIDTH 13.9 % 11.6-14.4 (BEAKER) (test code = 412) PLATELET COUNT (BEAKER) (test 179 K/CU MM 150-450 code = 756) MEAN PLATELET VOLUME (BEAKER) 10.5 fL 9.4-12.4 (test code = 754) NUCLEATED RED BLOOD CELLS 0 /100 WBC 0-0 (BEAKER) (test code = 413) NEUTROPHILS RELATIVE PERCENT 79 % (BEAKER) (test code = 429) LYMPHOCYTES RELATIVE PERCENT 8 % (BEAKER) (test code = 430) MONOCYTES RELATIVE PERCENT 11 % (BEAKER) (test code = 431) EOSINOPHILS RELATIVE PERCENT 1 % (BEAKER) (test code = 432) BASOPHILS RELATIVE PERCENT 0 % (BEAKER) (test code = 437) NEUTROPHILS ABSOLUTE COUNT 10.84 K/ L 1.78-5.38 H (BEAKER) (test code = 670) LYMPHOCYTES ABSOLUTE COUNT 1.10 K/ L 1.32-3.57 L (BEAKER) (test code = 414) MONOCYTES ABSOLUTE COUNT (BEAKER) 1.43 K/ L 0.30-0.82 H (test code = 415) EOSINOPHILS ABSOLUTE COUNT 0.07 K/ L 0.04-0.54 (BEAKER) (test code = 416) BASOPHILS ABSOLUTE COUNT (BEAKER) 0.03 K/ L 0.01-0.08 (test code = 417) IMMATURE GRANULOCYTES-RELATIVE 1 % 0-1 PERCENT (BEAKER) (test code = 2801) COMPREHENSIVE METABOLIC [id number] 06:58:00 Test Item Value Reference Range Interpretation Comments TOTAL PROTEIN 6.2 gm/dL 6.0-8.3 (BEAKER) (test code = 770) ALBUMIN (BEAKER) 3.1 g/dL 3.5-5.0 L (test code = 1145) ALKALINE PHOSPHATASE 76 U/L 40-150 (BEAKER) (test code = 346) BILIRUBIN TOTAL 1.5 mg/dL 0.2-1.2 H (BEAKER) (test code = 377) SODIUM (BEAKER) (test 139 meq/L 136-145 code = 381) POTASSIUM (BEAKER) 3.8 meq/L 3.5-5.1 (test code = 379) CHLORIDE (BEAKER) 105 meq/L 98-107 (test code = 382) CO2 (BEAKER) (test 28 meq/L 22-29 code = 355) BLOOD UREA NITROGEN 21 mg/dL 7-21 (BEAKER) (test code = 354) CREATININE (BEAKER) 0.87 mg/dL 0.57-1.25 (test code = 358) GLUCOSE RANDOM 118 mg/dL 70-105 H (BEAKER) (test code = 652) CALCIUM (BEAKER) 7.9 mg/dL 8.4-10.2 L (test code = 697) AST (SGOT) (BEAKER) 24 U/L 5-34 (test code = 353) ALT (SGPT) (BEAKER) 89 U/L 6-55 H (test code = 347) EGFR (BEAKER) (test INSUFFIC IENT CLINICAL code = 1092) DATA TO CALCULA TE ESTIMATED GFR. [employer] Dean ID - [id number] 06:51:00 Test Item Value Reference Range Interpretation Comments PHOSPHORUS (BEAKER) (test code = 2.1 mg/dL 2.3-4.7 L 604) [employer] ID - [id number] 06:51:00 Test Item Value Reference Range Interpretation Comments MAGNESIUM (BEAKER) (test code = 2.1 mg/dL 1.6-2.6 627) [employer] Dean ID - LABILIRUBIN, [id number] 06:51:00 Test Item Value Reference Range Interpretation Comments BILIRUBIN DIRECT (BEAKER) (test 1.2 mg/dL 0.1-0.5 H code = 706) [employer] ID - [id number] 06:51:00 Test Item Value Reference Range Interpretation Comments LIPASE (BEAKER) (test code = 749) 40 U/L 8-78 [employer] Dean ID - LACBC W/PLT COUNT & AUTO [id number] 06:25:00 Test Item Value Reference Range Interpretation Comments WHITE BLOOD CELL COUNT (BEAKER) 13.0 K/ L 3.5-10.5 H (test code = 775) RED BLOOD CELL COUNT (BEAKER) 4.28 M/ L 4.63-6.08 L (test code = 761) HEMOGLOBIN (BEAKER) (test code = 12.1 GM/DL 13.7-17.5 L 410) HEMATOCRIT (BEAKER) (test code = 37.4 % 40.1-51.0 L 411) MEAN CORPUSCULAR VOLUME (BEAKER) 87.4 fL 79.0-92.2 (test code = 753) MEAN CORPUSCULAR HEMOGLOBIN 28.3 pg 25.7-32.2 (BEAKER) (test code = 751) MEAN CORPUSCULAR HEMOGLOBIN CONC 32.4 GM/DL 32.3-36.5 (BEAKER) (test code = 752) RED CELL DISTRIBUTION WIDTH 13.7 % 11.6-14.4 (BEAKER) (test code = 412) PLATELET COUNT (BEAKER) (test 199 K/CU MM 150-450 code = 756) MEAN PLATELET VOLUME (BEAKER) 10.9 fL 9.4-12.4 (test code = 754) NUCLEATED RED BLOOD CELLS 0 /100 WBC 0-0 (BEAKER) (test code = 413) NEUTROPHILS RELATIVE PERCENT 88 % (BEAKER) (test code = 429) LYMPHOCYTES RELATIVE PERCENT 4 % (BEAKER) (test code = 430) MONOCYTES RELATIVE PERCENT 7 % (BEAKER) (test code = 431) EOSINOPHILS RELATIVE PERCENT 0 % (BEAKER) (test code = 432) BASOPHILS RELATIVE PERCENT 0 % (BEAKER) (test code = 437) NEUTROPHILS ABSOLUTE COUNT 11.44 K/ L 1.78-5.38 H (BEAKER) (test code = 670) LYMPHOCYTES ABSOLUTE COUNT 0.56 K/ L 1.32-3.57 L (BEAKER) (test code = 414) MONOCYTES ABSOLUTE COUNT (BEAKER) 0.89 K/ L 0.30-0.82 H (test code = 415) EOSINOPHILS ABSOLUTE COUNT 0.00 K/ L 0.04-0.54 L (BEAKER) (test code = 416) BASOPHILS ABSOLUTE COUNT (BEAKER) 0.03 K/ L 0.01-0.08 (test code = 417) IMMATURE GRANULOCYTES-RELATIVE 1 % 0-1 PERCENT (BEAKER) (test code = 2801) RAD, CHEST, 1 VIEW, NON [id number] 16:38:00Reason for exam:->SOB after procedureShould this be performed at the bedside?->YesFINAL REPORT TECHNIQUE: Frontal view of the chest. INDICATION: 69-year-old man with shortness of breath after procedure. COMPARISON: Chest radiograph 12/26/2019. FINDINGS: LINES/TUBES/DEVICES: None. LUNGS: No consolidation or pulmonary edema. PLEURA: Unchanged small left pleuraleffusion. No pneumothorax. HEART AND MEDIASTINUM: The cardiomediastinal silhouette is unchanged. Athe rosclerotic calcifications in the thoracic aorta. SOFT TISSUES AND BONES: Unremarkable. IMPRESSION:No significant change since 12/26/2019. Signed: Karolina Paytonort Verified Date/Time: 12/27/2019 16:38:47 Reading Location: [address] Body Reading Room FL, FLUORO, NON-SPECIFIC, UP TO 1 HOUR 2019-12-27 16:06:00Reason for exam:->ERCPFINAL REPORT A fluoroscopic unit was utilized for a procedure performed in the operating room. No interpretation was requested. Please refer to the operative report regarding findings. Please refer to PACS for patient radiation dose information. Signed: Karolina Payton MDRaldoort Verified Date/Time: 12/27/2019 16:06:38 Reading Location: [facility] C013Y CT Body Reading Room [id number] 07:41:00 Test Item Value Reference Range Interpretation Comments PHOSPHORUS (BEAKER) 1.3 mg/dL 2.3-4.7 LL Specimen slightly (test code = 604) hemolyzed [employer] ID - KENNCOMPREHENSIVE METABOLIC [id number] 07:37:00 Test Item Value Reference Range Interpretation Comments TOTAL PROTEIN 6.4 gm/dL 6.0-8.3 Specimen sligh tly (BEAKER) (test code = hemoly zed 770) ALBUMIN (BEAKER) 3.1 g/dL 3.5-5.0 L Specimen sl ightly (test code = 1145) hemolyzed ALKALINE PHOSPHATASE 86 U/L 40-150 (BEAKER) (test code = 346) BILIRUBIN TOTAL 2.7 mg/dL 0.2-1.2 H Specimen sli ghtly (BEAKER) (test code = hemoly zed 377) SODIUM (BEAKER) (test 135 meq/L 136-145 L code = 381) POTASSIUM (BEAKER) 3.8 meq/L 3.5-5.1 Specimen slightly (test code = 379) hemolyzed CHLORIDE (BEAKER) 103 meq/L 98-107 (test code = 382) CO2 (BEAKER) (test 23 meq/L 22-29 code = 355) BLOOD UREA NITROGEN 18 mg/dL 7-21 (BEAKER) (test code = 354) CREATININE (BEAKER) 0.83 mg/dL 0.57-1.25 Specimen slightly (test code = 358) hemolyzed GLUCOSE RANDOM 116 mg/dL 70-105 H (BEAKER) (test code = 652) CALCIUM (BEAKER) 7.9 mg/dL 8.4-10.2 L (test code = 697) AST (SGOT) (BEAKER) 44 U/L 5-34 H Specimen slightly (test code = 353) hemolyzed ALT (SGPT) (BEAKER) 125 U/L 6-55 H Specimen slightly (test code = 347) hemolyzed EGFR (BEAKER) (test INSUFFIC IENT CLINICAL code = 1092) DATA TO CALCULA TE ESTIMATED GFR. [employer] Dean ID - EMILIENSpecimen slightly [id number] 07:34:00 Test Item Value Reference Range Interpretation Comments MAGNESIUM (BEAKER) 1.8 mg/dL 1.6-2.6 Specimen slightly (test code = 627) hemolyzed [employer] ID - EMILIEGERARDOILIRUBIN, [id number] 07:34:00 Test Item Value Reference Range Interpretation Comments BILIRUBIN DIRECT 1.5 mg/dL 0.1-0.5 H Specimen sl ightly (BEAKER) (test code = hemoly zed 706) [employer] ID - KENNPROTHROMBIN TIME/[id number] 05:31:00 Test Item Value Reference Range Interpretation Comments PROTIME (BEAKER) (test code = 15.6 seconds 11.9-14.2 H 759) INR (BEAKER) (test code = 370) 1.3 <=5.9 Effective 04/08/2019: PT Reference Range ChangeNew: 11.9-14.2 Previous: 11.7- 14.7RECOMMENDED COUMADIN/WARFARIN INR THERAPY RANGESSTANDARD DOSE: 2.0-3.0 Includes: PROPHYLAXIS for venous thrombosis, systemic embolization; TREATMENT for venous thrombosis and/or pulmonary embolus.HIGH RISK: Target INR is2.5-3.5 for patients wiht mechanical heart valves.CBC W/PLT COUNT & AUTO [id number] 05:10:00 Test Item Value Reference Range Interpretation Comments WHITE BLOOD CELL COUNT (BEAKER) 17.4 K/ L 3.5-10.5 H (test code = 775) RED BLOOD CELL COUNT (BEAKER) 4.47 M/ L 4.63-6.08 L (test code = 761) HEMOGLOBIN (BEAKER) (test code = 13.1 GM/DL 13.7-17.5 L 410) HEMATOCRIT (BEAKER) (test code = 38.4 % 40.1-51.0 L 411) MEAN CORPUSCULAR VOLUME (BEAKER) 85.9 fL 79.0-92.2 (test code = 753) MEAN CORPUSCULAR HEMOGLOBIN 29.3 pg 25.7-32.2 (BEAKER) (test code = 751) MEAN CORPUSCULAR HEMOGLOBIN CONC 34.1 GM/DL 32.3-36.5 (BEAKER) (test code = 752) RED CELL DISTRIBUTION WIDTH 13.7 % 11.6-14.4 (BEAKER) (test code = 412) PLATELET COUNT (BEAKER) (test 164 K/CU MM 150-450 code = 756) MEAN PLATELET VOLUME (BEAKER) 11.4 fL 9.4-12.4 (test code = 754) NUCLEATED RED BLOOD CELLS 0 /100 WBC 0-0 (BEAKER) (test code = 413) NEUTROPHILS RELATIVE PERCENT 85 % (BEAKER) (test code = 429) LYMPHOCYTES RELATIVE PERCENT 4 % (BEAKER) (test code = 430) MONOCYTES RELATIVE PERCENT 8 % (BEAKER) (test code = 431) EOSINOPHILS RELATIVE PERCENT 0 % (BEAKER) (test code = 432) BASOPHILS RELATIVE PERCENT 0 % (BEAKER) (test code = 437) NEUTROPHILS ABSOLUTE COUNT 14.80 K/ L 1.78-5.38 H (BEAKER) (test code = 670) LYMPHOCYTES ABSOLUTE COUNT 0.64 K/ L 1.32-3.57 L (BEAKER) (test code = 414) MONOCYTES ABSOLUTE COUNT (BEAKER) 1.46 K/ L 0.30-0.82 H (test code = 415) EOSINOPHILS ABSOLUTE COUNT 0.02 K/ L 0.04-0.54 L (BEAKER) (test code = 416) BASOPHILS ABSOLUTE COUNT (BEAKER) 0.02 K/ L 0.01-0.08 (test code = 417) IMMATURE GRANULOCYTES-RELATIVE 2 % 0-1 H PERCENT (BEAKER) (test code = 2801) RAD, CHEST, 1 VIEW, NON [id number] 10:13:00Reason for exam:->SOB, eval for pulm edemaShould this be performed at the bedside?->YesFINAL REPORT INDICATION: SOB, eval for pulm edema COMPARISON: None TECHNIQUE:Single frontal view of the chest. FINDINGS: Lungs and pleura: Clear lungs. Small left effusion.Heartand mediastinum: Normal heart size. Unremarkable mediastinal contours.Osseous structures: No acute abnormality.Other: None. IMPRESSION: No acute intrathoracic abnormality. Signed: JR Blair Robert MDReport Verified Date/Time: 12/26/2019 10:13:57 Reading Location: [facility] C[facility] Neuro Reading Room CBC W/PLT COUNT & AUTO [id number] 07:57:00 Test Item Value Reference Range Interpretation Comments WHITE BLOOD CELL COUNT (BEAKER) 16.3 K/ L 3.5-10.5 H (test code = 775) RED BLOOD CELL COUNT (BEAKER) 4.76 M/ L 4.63-6.08 (test code = 761) HEMOGLOBIN (BEAKER) (test code = 13.9 GM/DL 13.7-17.5 410) HEMATOCRIT (BEAKER) (test code = 40.7 % 40.1-51.0 411) MEAN CORPUSCULAR VOLUME (BEAKER) 85.5 fL 79.0-92.2 (test code = 753) MEAN CORPUSCULAR HEMOGLOBIN 29.2 pg 25.7-32.2 (BEAKER) (test code = 751) MEAN CORPUSCULAR HEMOGLOBIN CONC 34.2 GM/DL 32.3-36.5 (BEAKER) (test code = 752) RED CELL DISTRIBUTION WIDTH 13.6 % 11.6-14.4 (BEAKER) (test code = 412) PLATELET COUNT (BEAKER) (test 162 K/CU MM 150-450 code = 756) MEAN PLATELET VOLUME (BEAKER) 11.3 fL 9.4-12.4 (test code = 754) NUCLEATED RED BLOOD CELLS 0 /100 WBC 0-0 (BEAKER) (test code = 413) NEUTROPHILS RELATIVE PERCENT 88 % (BEAKER) (test code = 429) LYMPHOCYTES RELATIVE PERCENT 3 % (BEAKER) (test code = 430) MONOCYTES RELATIVE PERCENT 8 % (BEAKER) (test code = 431) EOSINOPHILS RELATIVE PERCENT 0 % (BEAKER) (test code = 432) BASOPHILS RELATIVE PERCENT 0 % (BEAKER) (test code = 437) NEUTROPHILS ABSOLUTE COUNT 14.24 K/ L 1.78-5.38 H (BEAKER) (test code = 670) LYMPHOCYTES ABSOLUTE COUNT 0.56 K/ L 1.32-3.57 L (BEAKER) (test code = 414) MONOCYTES ABSOLUTE COUNT (BEAKER) 1.25 K/ L 0.30-0.82 H (test code = 415) EOSINOPHILS ABSOLUTE COUNT 0.00 K/ L 0.04-0.54 L (BEAKER) (test code = 416) BASOPHILS ABSOLUTE COUNT (BEAKER) 0.03 K/ L 0.01-0.08 (test code = 417) IMMATURE GRANULOCYTES-RELATIVE 1 % 0-1 PERCENT (BEAKER) (test code = 2801) COMPREHENSIVE METABOLIC [id number] 07:55:00 Test Item Value Reference Range Interpretation Comments TOTAL PROTEIN 6.2 gm/dL 6.0-8.3 (BEAKER) (test code = 770) ALBUMIN (BEAKER) 3.2 g/dL 3.5-5.0 L (test code = 1145) ALKALINE PHOSPHATASE 96 U/L 40-150 (BEAKER) (test code = 346) BILIRUBIN TOTAL 3.2 mg/dL 0.2-1.2 H (BEAKER) (test code = 377) SODIUM (BEAKER) (test 137 meq/L 136-145 code = 381) POTASSIUM (BEAKER) 3.8 meq/L 3.5-5.1 (test code = 379) CHLORIDE (BEAKER) 103 meq/L 98-107 (test code = 382) CO2 (BEAKER) (test 25 meq/L 22-29 code = 355) BLOOD UREA NITROGEN 19 mg/dL 7-21 (BEAKER) (test code = 354) CREATININE (BEAKER) 0.89 mg/dL 0.57-1.25 (test code = 358) GLUCOSE RANDOM 128 mg/dL 70-105 H (BEAKER) (test code = 652) CALCIUM (BEAKER) 7.9 mg/dL 8.4-10.2 L (test code = 697) AST (SGOT) (BEAKER) 74 U/L 5-34 H (test code = 353) ALT (SGPT) (BEAKER) 206 U/L 6-55 H (test code = 347) EGFR (BEAKER) (test INSUFFIC IENT CLINICAL code = 1092) DATA TO CALCULA TE ESTIMATED GFR. [employer] ID - NTPSpecimen slightly ictericBILIRUBIN, [id number] 07:53:00 Test Item Value Reference Range Interpretation Comments BILIRUBIN DIRECT (BEAKER) (test 2.1 mg/dL 0.1-0.5 H code = 706) [employer] ID - NTPHEPATOBILIARY [id number] 16:15:00FINAL REPORT PROCEDURE: HEPATOBILIARY SCAN CPT CODE: [id number] INDICA TION: Evaluate for cholecystitis PROTOCOL: 8.2 mCi of Tc-99m mebrofenin was injected intravenously. Images of the upper abdomen were obtained for approximately 75 minutes after tracer injection. Four hour delayed images were acquired FINDINGS: Initial tracer uptake into the liver is physiological. Subsequent tracer clearance from the liver proceeds normally. During the first hourthere is minimal bowel activity and no gallbladder activity. The four hour delayed activity shows bowel activity without gallbladder activity. IMPRESSION: Abnormal hepatobiliary scan. The exam is shows delayed biliary clearance with nonvisualization of the gallbladder consistent with acute cholecystitis. Signed: Hunter Srinivasan MDReport Verified Date/Time: 12/25/2019 16:15:05 Reading Location: [address] Reading Room COMPREHENSIVE METABOLIC [id number] 07:34:00 Test Item Value Reference Range Interpretation Comments TOTAL PROTEIN 7.0 gm/dL 6.0-8.3 (BEAKER) (test code = 770) ALBUMIN (BEAKER) 3.8 g/dL 3.5-5.0 (test code = 1145) ALKALINE PHOSPHATASE 123 U/L 40-150 (BEAKER) (test code = 346) BILIRUBIN TOTAL 7.5 mg/dL 0.2-1.2 H (BEAKER) (test code = 377) SODIUM (BEAKER) (test 138 meq/L 136-145 code = 381) POTASSIUM (BEAKER) 4.2 meq/L 3.5-5.1 (test code = 379) CHLORIDE (BEAKER) 102 meq/L 98-107 (test code = 382) CO2 (BEAKER) (test 26 meq/L 22-29 code = 355) BLOOD UREA NITROGEN 17 mg/dL 7-21 (BEAKER) (test code = 354) CREATININE (BEAKER) 1.00 mg/dL 0.57-1.25 (test code = 358) GLUCOSE RANDOM 129 mg/dL 70-105 H (BEAKER) (test code = 652) CALCIUM (BEAKER) 8.8 mg/dL 8.4-10.2 (test code = 697) AST (SGOT) (BEAKER) 329 U/L 5-34 H (test code = 353) ALT (SGPT) (BEAKER) 471 U/L 6-55 H (test code = 347) EGFR (BEAKER) (test INSUFFIC IENT CLINICAL code = 1092) DATA TO CALCULA TE ESTIMATED GFR. [employer] ID - DHRUV WSpecimen moderately ictericCBC W/PLT COUNT & AUTO [id number] 06:40:00 Test Item Value Reference Range Interpretation Comments WHITE BLOOD CELL COUNT (BEAKER) 11.2 K/ L 3.5-10.5 H (test code = 775) RED BLOOD CELL COUNT (BEAKER) 5.36 M/ L 4.63-6.08 (test code = 761) HEMOGLOBIN (BEAKER) (test code = 15.3 GM/DL 13.7-17.5 410) HEMATOCRIT (BEAKER) (test code = 45.5 % 40.1-51.0 411) MEAN CORPUSCULAR VOLUME (BEAKER) 84.9 fL 79.0-92.2 (test code = 753) MEAN CORPUSCULAR HEMOGLOBIN 28.5 pg 25.7-32.2 (BEAKER) (test code = 751) MEAN CORPUSCULAR HEMOGLOBIN CONC 33.6 GM/DL 32.3-36.5 (BEAKER) (test code = 752) RED CELL DISTRIBUTION WIDTH 13.2 % 11.6-14.4 (BEAKER) (test code = 412) PLATELET COUNT (BEAKER) (test 182 K/CU MM 150-450 code = 756) MEAN PLATELET VOLUME (BEAKER) 11.1 fL 9.4-12.4 (test code = 754) NUCLEATED RED BLOOD CELLS 0 /100 WBC 0-0 (BEAKER) (test code = 413) NEUTROPHILS RELATIVE PERCENT 88 % (BEAKER) (test code = 429) LYMPHOCYTES RELATIVE PERCENT 4 % (BEAKER) (test code = 430) MONOCYTES RELATIVE PERCENT 7 % (BEAKER) (test code = 431) EOSINOPHILS RELATIVE PERCENT 0 % (BEAKER) (test code = 432) BASOPHILS RELATIVE PERCENT 0 % (BEAKER) (test code = 437) NEUTROPHILS ABSOLUTE COUNT 9.81 K/ L 1.78-5.38 H (BEAKER) (test code = 670) LYMPHOCYTES ABSOLUTE COUNT 0.47 K/ L 1.32-3.57 L (BEAKER) (test code = 414) MONOCYTES ABSOLUTE COUNT (BEAKER) 0.82 K/ L 0.30-0.82 (test code = 415) EOSINOPHILS ABSOLUTE COUNT 0.01 K/ L 0.04-0.54 L (BEAKER) (test code = 416) BASOPHILS ABSOLUTE COUNT (BEAKER) 0.01 K/ L 0.01-0.08 (test code = 417) IMMATURE GRANULOCYTES-RELATIVE 1 % 0-1 PERCENT (BEAKER) (test code = 2801) MR, ABDOMEN, [id number] 00:44:00FINAL REPORT MR, ABDOMEN, MRCP INDICATION: eval for biliary obstruction, choledocholithiasis COMPARISON: None available TECHNIQUE: Multiplanar imaging with multiple sequences of the abdomen was performed utilizing a 1.5 luz maria magnet without the administration of gadolinium contrast. In addition, thin and thick slab images of the biliary tract as well as 3D reconstructions of the biliary system were also performed. FINDINGS:Visualized intrathoracic contents: Bilateral lower lobe dependent atelectasis. The heart is normal in size. No pericardial effusion. No large pleural effusion. Liver: Hepatic steatosis. Lack of intravenous contrast material limits evaluation for discrete hepatic lesions. Multiple T2 hyperintense cysts throughout the hepatic parenchyma, the largest of which is bilobed in the caudate lobe measuring up to 1.6 cm. Biliary tree: The gallbladder is somewhat distended with cholelithiasis and trace pericholecystic fluid, nonreactive in the setting of intra-abdominal ascites and inflammatory stranding centered in the mid abdomen. No abnormal gallbladder wall thickening. No intra or extrahepatic biliary ductal dilatation. The common bile duct is normal in course and caliber. No filling defect is evident. Pancreas: Inflammatory stranding surrounding the pancreatic parenchyma suggestive of acute pancreatitis with relative homogeneous appearance of the pancreatic parenchyma. No ductal dilatation. No drainable fluid collections. Scattered 1 mm T2 hyperintense cystic lesions in the pancreatic parenchyma may represent sidebranch IPMNs however too small to definitively characterize. Adrenal glands: Normal. Spleen: No acute abnormality. Normal in size. Kidneys: Bilateral T2 hyperintense cysts the largest of which is exophytic from the right lower pole measuring8.3 cm. No hydronephrosis or hydroureter. Stomach, small and large bowel: Visible portions of the enteric tract are unremarkable. Peritoneum and retroperitoneum: Small volume intra-abdominal ascites and inflammatory stranding centered around the pancreas extending into the bilateral paracolic gutters. No pathologically enlarged intra-abdominal lymph nodes. Vasculature: The abdominal aorta is normalin caliber. Expected vascular flow voids are present. Osseous structures: There are no focal or diffuse abnormalities of the osseous structures. Soft tissues: The subcutaneous soft tissues as well as the musculature are within normal limits. IMPRESSION: Findings above consistent with acute pancreatitis with no drainable fluid collection and relatively homogeneous appearance of pancreatic parenchyma. Multiple 1 mm T2 hyperintense cystic lesions in the pancreatic parenchyma may represent sidebranch IPMNs however too small to definitively characterize. Recommend follow-up MRI/MRCP in six months to ensure stability. Cholelithiasis with gallbladder distention, and pericholecystic fluid which is nonspecific in the setting of intra-abdominal ascites. If there is persistent concern for acute cholecystitis recommend further evaluation with HIDA scan. No choledocholithiasis is identified. Hepatic steatosis. Signed: Dena Jimenez [facility] Verified Date/Time: 12/25/2019 00:44:27 COMPREHENSIVE METABOLIC [id number] 19:07:00 Test Item Value Reference Range Interpretation Comments TOTAL PROTEIN 7.6 gm/dL 6.0-8.3 (BEAKER) (test code = 770) ALBUMIN (BEAKER) 4.2 g/dL 3.5-5.0 (test code = 1145) ALKALINE PHOSPHATASE 120 U/L 40-150 (BEAKER) (test code = 346) BILIRUBIN TOTAL 5.4 mg/dL 0.2-1.2 H (BEAKER) (test code = 377) SODIUM (BEAKER) (test 137 meq/L 136-145 code = 381) POTASSIUM (BEAKER) 4.2 meq/L 3.5-5.1 (test code = 379) CHLORIDE (BEAKER) 102 meq/L 98-107 (test code = 382) CO2 (BEAKER) (test 23 meq/L 22-29 code = 355) BLOOD UREA NITROGEN 18 mg/dL 7-21 (BEAKER) (test code = 354) CREATININE (BEAKER) 1.16 mg/dL 0.57-1.25 (test code = 358) GLUCOSE RANDOM 175 mg/dL 70-105 H (BEAKER) (test code = 652) CALCIUM (BEAKER) 9.4 mg/dL 8.4-10.2 (test code = 697) AST (SGOT) (BEAKER) 468 U/L 5-34 H (test code = 353) ALT (SGPT) (BEAKER) 491 U/L 6-55 H (test code = 347) EGFR (BEAKER) (test INSUFFIC IENT CLINICAL code = 1092) DATA TO CALCULA TE ESTIMATED GFR. [employer] ID - LASpecimen slightly ictericPROTHROMBIN [id number] 19:06:00 Test Item Value Reference Range Interpretation Comments PROTIME (BEAKER) (test code = 13.6 seconds 11.9-14.2 759) INR (BEAKER) (test code = 370) 1.1 <=5.9 Effective 04/08/2019: PT Reference Range ChangeNew: 11.9-14.2 Previous: 11.7- 14.7RECOMMENDED COUMADIN/WARFARIN INR THERAPY RANGESSTANDARD DOSE: 2.0-3.0 Includes: PROPHYLAXIS for venous thrombosis, systemic embolization; TREATMENT for venous thrombosis and/or pulmonary embolus.HIGH RISK: Target INR is2.5-3.5 for patients wiht mechanical heart valves.[id number] 19:04:00 Test Item Value Reference Range Interpretation Comments TRIGLYCERIDES (BEAKER) (test code = 136 mg/dL 540) TRIGLYCERIDE REFERENCE RANGELow Risk <150Borderline Risk 150-199High Risk 200-499Very High Risk>=500Operator ID - LASpecimen slightly ictericCBC W/PLT COUNT & AUTO [id number] 18:55:00 Test Item Value Reference Range Interpretation Comments WHITE BLOOD CELL COUNT (BEAKER) 12.7 K/ L 3.5-10.5 H (test code = 775) RED BLOOD CELL COUNT (BEAKER) 5.39 M/ L 4.63-6.08 (test code = 761) HEMOGLOBIN (BEAKER) (test code = 15.4 GM/DL 13.7-17.5 410) HEMATOCRIT (BEAKER) (test code = 46.4 % 40.1-51.0 411) MEAN CORPUSCULAR VOLUME (BEAKER) 86.1 fL 79.0-92.2 (test code = 753) MEAN CORPUSCULAR HEMOGLOBIN 28.6 pg 25.7-32.2 (BEAKER) (test code = 751) MEAN CORPUSCULAR HEMOGLOBIN CONC 33.2 GM/DL 32.3-36.5 (BEAKER) (test code = 752) RED CELL DISTRIBUTION WIDTH 13.2 % 11.6-14.4 (BEAKER) (test code = 412) PLATELET COUNT (BEAKER) (test 198 K/CU MM 150-450 code = 756) MEAN PLATELET VOLUME (BEAKER) 11.1 fL 9.4-12.4 (test code = 754) NUCLEATED RED BLOOD CELLS 0 /100 WBC 0-0 (BEAKER) (test code = 413) NEUTROPHILS RELATIVE PERCENT 91 % (BEAKER) (test code = 429) LYMPHOCYTES RELATIVE PERCENT 2 % (BEAKER) (test code = 430) MONOCYTES RELATIVE PERCENT 7 % (BEAKER) (test code = 431) EOSINOPHILS RELATIVE PERCENT 0 % (BEAKER) (test code = 432) BASOPHILS RELATIVE PERCENT 0 % (BEAKER) (test code = 437) NEUTROPHILS ABSOLUTE COUNT 11.52 K/ L 1.78-5.38 H (BEAKER) (test code = 670) LYMPHOCYTES ABSOLUTE COUNT 0.31 K/ L 1.32-3.57 L (BEAKER) (test code = 414) MONOCYTES ABSOLUTE COUNT (BEAKER) 0.83 K/ L 0.30-0.82 H (test code = 415) EOSINOPHILS ABSOLUTE COUNT 0.00 K/ L 0.04-0.54 L (BEAKER) (test code = 416) BASOPHILS ABSOLUTE COUNT (BEAKER) 0.02 K/ L 0.01-0.08 (test code = 417) IMMATURE GRANULOCYTES-RELATIVE 0 % 0-1 PERCENT (BEAKER) (test code = 0616)
[2022-02-16 00:15] LABS: Absolute Lymphocytes (CBC) 2.1 K/uL (0.7-4.9); Hematocrit 39.7 % (39.6-49.0); Lymphocytes % 26.6 % (15.3-44.8); MPV 9.1 fL (7.6-11.3); RBC Red Blood Cell Count 4.63 M/uL (4.33-5.43)
[2022-02-16 00:30] LABS: Potassium 3.9 mmol/L (3.5-5.1); Troponin High Sensitivity 6.7 pg/mL (<58.9)
[2022-02-16] MEDS ORDERED: cloNIDine HCL 0.1 MG TAB ONE (00:37)
--- NOTE | 2022-02-16 01:50 | EDPHYS ---
Physician Documentation [facility] Name: Castro Tam Age: 71 yrs Sex: Male : 1950 Arrival Date: 02/15/2022 Time: 22:14 Bed 27 Private MD: ED Physician Andre David HPI: 02/15 23:48 This 71 yrs old Male presents to ER via Ambulatory with complaints of High Blood ms3 Pressure. 23:48 The patient has elevated blood pressure and discovered this at home, with a home ms3 device. Onset: The symptoms/episode began/occurred today. Modifying factors: The symptoms are aggravated by nothing, The symptoms are alleviated by Nothing. Associated signs and symptoms: Pertinent positives: Indigestion after eating pizza, Pertinent negatives:. Severity of symptoms: At its worst the blood pressure was 203 mm Hg. 71-year-old male with past medical history of diverticulitis, hypertension presents for elevated blood pressure that was noted this morning. Patient states his highest blood pressure was 203/90. Patient states he developed indigestion this afternoon after eating pizza. Patient rates his discomfort a 1/10. Patient denies alleviating or inciting factors. Historical: - Allergies: 22:35 Azithromycin; tw5 22:35 Clindamycin; tw5 22:35 lampocil; tw5 22:35 PENICILLINS; tw5 - PMHx: 22:35 Diverticulitis; Hypertensive disorder; tw5 - PSHx: 22:36 Cholecystectomy; tw5 - Immunization history:: Flu vaccine is not up to date. - Social history:: Smoking status: Patient denies any tobacco usage or history of. ROS: 23:48 Constitutional: Negative for fever, and chills. Neck: Negative for injury, pain, and ms3 swelling, Cardiovascular: Negative for chest pain, and palpitations. Respiratory: Negative for shortness of breath, cough, wheezing, and pleuritic chest pain, MS/Extremity: Negative for injury and deformity, Skin: Negative for injury, rash, and discoloration, Neuro: Negative for headache, weakness, numbness, tingling. 23:48 All other systems are negative. Exam: 23:30 ECG was reviewed by the Attending Physician. ms3 23:48 Constitutional: This is a well developed, well nourished patient who is awake, alert, ms3 and in no acute distress. Eyes: Pupils equal round and reactive to light, extra-ocular motions intact. Lids and lashes normal. Conjunctiva and sclera are non-icteric and not injected. Periorbital areas with no swelling, redness, or edema. ENT: Nares patent. No nasal discharge, no septal abnormalities noted. Tympanic membranes are normal and external auditory canals are clear. Oropharynx with no redness, swelling, or masses, exudates, or evidence of obstruction, uvula midline. Mucous membranes moist. Neck: Trachea midline, no cervical lymphadenopathy. Supple, full range of motion without nuchal rigidity, or vertebral point tenderness. No Meningismus. Chest/axilla: Normal chest wall appearance and motion. Nontender with no deformity. Cardiovascular: Regular rate and rhythm with a normal S1 and S2. No gallops, murmurs, or rubs. Normal PMI, no JVD. No pulse deficits. Respiratory: Lungs have equal breath sounds bilaterally, clear to auscultation and percussion. No rales, rhonchi or wheezes noted. No increased work of breathing, no retractions or nasal flaring. Abdomen/GI: Soft, non-tender, with normal bowel sounds. No distension or tympany. No guarding or rebound. No evidence of tenderness throughout. Skin: Warm, dry with normal turgor. Normal color with no rashes, no lesions, and no evidence of cellulitis. MS/ Extremity: Pulses equal, no cyanosis. Neurovascular intact. Full, normal range of motion. Psych: Awake, alert, with orientation to person, place and time. Behavior, mood, and affect are within normal limits. Vital Signs: 22:31 BP 213 / 81; Pulse 58; Resp 18; Temp 98.1; Pulse Ox 100% ; Weight 99.79 kg; Height 5 tw5 ft. 10 in. (177.80 cm); Pain 0/10; 23:12 BP 213 / 76; Pulse 57; Resp 18; Pulse Ox 99% on R/A; Pain 0/10; machelle 04/08 00:09 BP 232 / 85; Pulse 61; Resp 16; Pulse Ox 99% on R/A; wm 00:50 BP 233 / 94; Pulse 60; Resp 18; Pulse Ox 100% on R/A; Pain 0/10; machelle 01:37 BP 202 / 87; Pulse 58; Resp 16; Pulse Ox 98% on R/A; Pain 0/10; machelle 01:42 BP 185 / 89; Pulse 58; Resp 16; Pulse Ox 98% on R/A; Pain 0/10; machelle 01:57 BP 185 / 78; Pulse 56; Resp 14; Pulse Ox 99% on R/A; Pain 0/10; machelle 02/15 22:31 Body Mass Index 31.57 (99.79 kg, 177.80 cm) tw5 MDM: 02/15 23:16 Patient medically screened. ms3 23:48 Differential diagnosis: hypertensive crisis, NE vs ACS. ms3 02/16 01:50 Data reviewed: vital signs, nurses notes, lab test result(s), EKG, radiologic studies, ms3 plain films. Data interpreted: teletypesetter monitor: rate is 56 beats/min, rhythm is sinus bradycardia, with no ectopy, Interpretation: normal rhythm, bradycardia. Counseling: I had a detailed discussion with the patient and/or guardian regarding: the historical points, exam findings, and any diagnostic results supporting the discharge/admit diagnosis, the presence of at least one elevated blood pressure reading (>120/80) during this emergency department visit, lab results, radiology results, the need for outpatient follow up, to return to the emergency department if symptoms worsen or persist or if there are any questions or concerns that arise at home. ED course: Discussed labs, chest x-ray, EKG with patient and his . Patient to follow-up with his primary care physician in 1 to 2 days for blood pressure medication adjustment. Patient understands and agrees with plan. All questions were answered. Return precautions discussed include worsening symptoms, or any other concerns. On reevaluation patient is alert oriented x4, no apparent distress, nontoxic-appearing, ambulatory in the emergency department.. 02/15 23:48 Order name: Basic Metabolic Panel; Complete Time: 00:56 ms3 02/15 23:48 Order name: CBC with Diff; Complete Time: 00:56 ms3 02/15 23:48 Order name: Troponin HS; Complete Time: 00:56 ms3 02/15 23:48 Order name: XRAY Chest (1 view) ms3 02/15 23:48 Order name: EKG; Complete Time: 23:48 ms3 02/15 23:48 Order name: Cardiac monitoring; Complete Time: 23:48 ms3 02/15 23:48 Order name: EKG - Nurse/Tech; Complete Time: 23:48 ms3 02/15 23:48 Order name: IV Saline Lock; Complete Time: 23:48 ms3 02/15 23:48 Order name: Labs collected and sent; Complete Time: 23:48 ms3 02/15 23:48 Order name: O2 Per Protocol; Complete Time: 23:48 ms3 02/15 23:48 Order name: O2 Sat Monitoring; Complete Time: 23:48 ms3 EC/07 23:30 Rate is 60 beats/min. Rhythm is regular. QRS [place] is Normal. Clinical impression: ms3 Normal ECG. Interpreted by me. Administered Medications: 22:58 CANCELLED (Physiciann): cloNIDine 0.1 mg PO once ms3 02/16 00:47 Drug: cloNIDine 0.2 mg Route: PO; machelle Disposition Summary: 02/16/22 01:49 Discharge Ordered Location: Home ms3 Problem: new ms3 Symptoms: have improved ms3 Condition: Stable ms3 Diagnosis - asymptomatic hypertension ms3 Followup: ms3 - With: Private Physician - When: 1 - 2 days - Reason: Re-evaluation by your physician Discharge Instructions: - Discharge Summary Sheet ms3 - Hypertension, Adult ms3 Forms: - Medication Reconciliation Form ms3 - Thank You Letter ms3 - Antibiotic Education ms3 - Prescription Opioid Use ms3 Signatures: Dispatcher [employer] EDMS Andre David DO DO ms3 Lam Liset tw5 Albina Quispe RN BRIDGET carty Corrections: (The following items were deleted from the chart) 02/15 22:58 22:58 cloNIDine 0.1 mg PO once ordered. ms3 ms3
--- NOTE | 2022-02-16 01:50 | ER ---
Nurse's Notes [facility] Name: Castro Tam Age: 71 yrs Sex: Male : 1950 Arrival Date: 02/15/2022 Time: 22:14 Bed 27 Private MD: Diagnosis: asymptomatic hypertension Presentation: 02/15 22:31 Chief complaint: Patient states: "My blood pressure normally runs 115. I took the tw5 clonidine at 6, but it just keeps going up.". Coronavirus screen: Vaccine status: Patient reports receiving the 2nd dose of the covid vaccine. Moderna. Ebola Screen: Patient negative for fever greater than or equal to 101.5 degrees Fahrenheit, and additional compatible Ebola Virus Disease symptoms Patient denies exposure to infectious person. Patient denies travel to an Ebola-affected area in the 21 days before illness onset. Initial Sepsis Screen: Does the patient meet any 2 criteria? No. Patient's initial sepsis screen is negative. Does the patient have a suspected source of infection? No. Patient's initial sepsis screen is negative. Risk Assessment: Do you want to hurt yourself or someone else? Patient reports no desire to harm self or others. Onset of symptoms was February 15, 2022. 22:31 Method Of Arrival: Ambulatory tw5 22:31 Acuity: MAXI 3 tw5 Triage Assessment: 22:36 General: Appears in no apparent distress. Behavior is calm, cooperative, appropriate tw5 for age. Pain: Denies pain. Neuro: Level of Consciousness is awake, alert, obeys commands, Oriented to person, place, time, situation, Denies weakness numbness headache. Historical: - Allergies: 22:35 Azithromycin; tw5 22:35 Clindamycin; tw5 22:35 lampocil; tw5 22:35 PENICILLINS; tw5 - PMHx: 22:35 Diverticulitis; Hypertensive disorder; tw5 - PSHx: 22:36 Cholecystectomy; tw5 - Immunization history:: Flu vaccine is not up to date. - Social history:: Smoking status: Patient denies any tobacco usage or history of. Screenin/08 00:51 Abuse screen: Denies threats or abuse. Denies injuries from another. Nutritional machelle screening: No deficits noted. Tuberculosis screening: No symptoms or risk factors identified. Fall Risk None identified. Assessment: 02/15 23:10 Reassessment: The pt was recv'd to room 27 at this time. machelle 02/16 01:41 Reassessment: The pt continues to deny any pain. He remains hypertensive, but machelle asymptomatic and improving. His remains at bedside. Vital Signs: 02/15 22:31 BP 213 / 81; Pulse 58; Resp 18; Temp 98.1; Pulse Ox 100% ; Weight 99.79 kg; Height 5 tw5 ft. 10 in. (177.80 cm); Pain 0/10; 23:12 BP 213 / 76; Pulse 57; Resp 18; Pulse Ox 99% on R/A; Pain 0/10; machelle 02/16 00:09 BP 232 / 85; Pulse 61; Resp 16; Pulse Ox 99% on R/A; wm 00:50 BP 233 / 94; Pulse 60; Resp 18; Pulse Ox 100% on R/A; Pain 0/10; machelle 01:37 BP 202 / 87; Pulse 58; Resp 16; Pulse Ox 98% on R/A; Pain 0/10; machelle 01:42 BP 185 / 89; Pulse 58; Resp 16; Pulse Ox 98% on R/A; Pain 0/10; machelle 01:57 BP 185 / 78; Pulse 56; Resp 14; Pulse Ox 99% on R/A; Pain 0/10; machelle 02/15 22:31 Body Mass Index 31.57 (99.79 kg, 177.80 cm) tw5 ED Course: 02/15 22:14 Patient arrived in ED. ja2 22:20 Andre David DO is Attending Physician. ms3 22:35 Triage completed. tw5 22:36 Arm band placed on right wrist. tw5 22:45 Patient notified of wait time. tw5 23:09 Albina Quispe, RN is Primary Nurse. machelle 23:42 EKG done, by manufacturing maintenance technician. wm 23:49 Inserted saline lock: 22 gauge in left forearm, using aseptic technique. Blood ld1 collected. 23:58 Basic Metabolic Panel Sent. machelle 23:58 CBC with Diff Sent. machelle 23:58 Troponin HS Sent. machelle 02/16 00:12 XRAY Chest (1 view) In Process Unspecified. EDMS 00:12 Warm blanket given. wm 01:37 No provider procedures requiring assistance completed. machelle 01:38 Patient has correct armband on for positive identification. Bed in low position. Call machelle light in reach. Side rails up X 1. Adult w/ patient. Administered Medications: 02/15 22:58 CANCELLED (Physiciann): cloNIDine 0.1 mg PO once ms3 02/16 00:47 Drug: cloNIDine 0.2 mg Route: PO; machelle Outcome: 01:38 Condition: stable machelle 01:49 Discharge ordered by . ms3 02:38 Patient left the ED. machelle Signatures: Dispatcher [employer] EDMS Andre David, DO ms3 Shirlene Mercado, RN RN ld1 Bety Veloz Jessica ja2 Wood, Tiffany tw5 Albina Quispe, RN RN machelle
--- NOTE | 2022-02-16 07:45 | EKG ---
Test Date: 2022-02-15 Test Time: 23:30:33 Finishing And Shipping Supervisor: CRISTAL MEASUREMENT RESULTS: Intervals: Rate: 60 MT: 186 QRSD: 104 QT: 418 QTc: 418 Marcellus: P: 45 MT: 186 QRS: 25 T: 42 INTERPRETIVE STATEMENTS: Normal sinus rhythm Normal ECG Compared to ECG 12/24/2019 05:30:24 Ventricular premature complex(es) no longer present Electronically Signed On 02-16-22 07:44:41 CDT by Tera Altamirano
[2022-02-16 10:17] VITALS: TEMP 98.1
[2022-02-16 10:27] VITALS: BP 185/78; O2SAT 99
--- NOTE | 2022-02-19 10:50 | RAD REPORT ---
EXAM DESCRIPTION: Chest Single View CLINICAL HISTORY: CHEST PAIN. COMPARISON: None. TECHNIQUE: Single view AP chest radiograph(s). FINDINGS: Trace diffuse pulmonary interstitial thickening. No infiltrate identified. No pleural effu enoc. No pneumothorax. Mild to moderate cardiomegaly. No significant osseous abnormality. IMPRESSION: 1. Trace diffuse pulmonary interstitial thickening. 2. Mild to moderate cardiomegaly. Electronically signed by: Afsaneh Chairez MD 02/16/2022 12:13 AM CDT Due to temporary technical issues with the PACS/Fluency reporting system, reports are being signed by the in house radiologist without review as a courtesy to ensure prompt reporting. The interpreting r adiologist is fully responsible for the content of the report.
== END 2022-02-16 02:38 | disposition home or self-care (01) ==
LOC: ER 22:11
DX: I10 Essential (primary) hypertension (principal); Z88.0 Allergy status to penicillin; Z88.1 Allergy status to other antibiotic agents
CPT/HCPCS: 36415; 71045; 80048; 84484; 85025; 93005; 99284

== ENCOUNTER 2023-10-20 17:57 | Emergency (ER) | payer OTHER ==
--- NOTE | 2023-10-20 18:46 | RAD REPORT ---
EXAM DESCRIPTION: CT - Head Brain Wo Cont - 10/20/2023 6:40 pm CLINICAL HISTORY: htn;Headache Headache, hypertension COMPARISON: <Comparisons> TECHNIQUE: All CT scans are performed using dose optimization technique as appropriate and may inclu de automated exposure control or mA/KV adjustment according to patient size. FINDINGS: No intracranial hemorrhage, hydrocephalus or extra-axial fluid collection.Mild generalized brain atrophy.No areas of brain edema or evidence of midline shift. The paranasal sinuses and mastoids are clear. The calvarium is intact. IMPRESSION: No acute intracranial abnormality.
--- NOTE | 2023-10-20 19:14 | RAD REPORT ---
EXAM DESCRIPTION: RAD - Chest Single View - 10/20/2023 7:03 pm CLINICAL HISTORY: htn Chest pain. COMPARISON: <Comparisons> FINDINGS: Portable technique limits examination quality. The lungs are grossly clear. The heart is mildly enlarged in size. No displaced fractures. IMPRESSION: No acute intrathoracic process suspected.
[2023-10-20 19:22] LABS: Specific Gravity 1.006 (1.005-1.030); Urine Bacteria None Seen /HPF (<20); Urine Bilirubin NEGATIVE (Negative); Urine Blood Negative (Negative); Urine Clarity Clear (Clear); Urine Color Colorless (Yellow); Urine Glucose NEGATIVE (Negative); Urine Protein NEGATIVE (Negative); Urine RBC <5 /HPF (None Seen); Urine Urobilinogen Normal (Normal); Urine pH 6.5 (5.0-7.0)
[2023-10-20 19:22] LABS: Absolute Lymphocytes (CBC) 2.2 K/uL (0.7-4.9); Hematocrit 40.8 % (39.6-49.0); Lymphocytes % 27.9 % (15.3-44.8); MCV 84.1 fL (80-100); MPV 8.9 fL (7.6-11.3); Platelets 168 thou/uL (152-406); RBC Red Blood Cell Count 4.85 M/uL (4.33-5.43)
[2023-10-20 19:28] LABS: Protime INR 1.04
[2023-10-20] MEDS ORDERED: cloNIDine HCL 0.1 MG TAB ONE (19:31)
[2023-10-20 19:46] LABS: Magnesium 2.2 mg/dL (1.6-2.4); Potassium 3.8 mEq/L (3.5-5.1); Troponin High Sensitivity 6.7 pg/mL (<58.9)
--- NOTE | 2023-10-20 20:33 | ER ---
Nurse's Notes [facility] [place] Name: Castro Tam Age: 73 yrs Sex: Male : 1950 Arrival Date: 10/20/2023 Time: 17:57 Bed 12 Private MD: Diagnosis: Hypertensive heart disease without heart failure Presentation: 10/20 18:12 Chief complaint: Patient states: High blood pressure reading 166/84. Blood pressure has iw been running high for the last 2 days. Had a headache this afternoon, took tylenol, headache is gone. Denies chest pain/headache, weakness and numbness. Coronavirus screen: Vaccine status: Patient reports receiving the 2nd dose of the covid vaccine. Ebola Screen: Patient denies travel to an Ebola-affected area in the 21 days before illness onset. Initial Sepsis Screen: Does the patient meet any 2 criteria? No. Patient's initial sepsis screen is negative. Does the patient have a suspected source of infection? No. Patient's initial sepsis screen is negative. Risk Assessment: Do you want to hurt yourself or someone else? Patient reports no desire to harm self or others. Onset of symptoms was October 19, 2023. 18:12 Method Of Arrival: Ambulatory iw 18:12 Acuity: MAXI 3 iw Historical: - Allergies: 18:17 Azithromycin; iw 18:17 Clindamycin; iw 18:17 PENICILLINS; iw 18:17 lampocil; iw - PMHx: 18:17 Hypertensive disorder; Diverticulitis; POTS syndrome (Unknown); iw - PSHx: 18:17 Cholecystectomy; iw - Immunization history:: Client reports receiving the 2nd dose of the Covid vaccine. - Social history:: Smoking status: Patient denies any tobacco usage or history of. Screenin:[address] [facility] ED Fall Risk Assessment (Adult) History of falling in the last 3 months, me1 including since admission No falls in past 3 months (0 pts) Confusion or Disorientation No (0 pts) Intoxicated or Sedated No (0 pts) Impaired Gait No (0 pts) Mobility Assist Device Used No (0 pt) Altered Elimination No (0 pt) Score/Fall Risk Level 0 - 2 = Low Risk Maintained a safe environment, Provided non-skid footwear, Hourly rounding (assess needs \T\ fall precautionary measures) done. Abuse screen: Denies threats or abuse. Nutritional screening: No deficits noted. Tuberculosis screening: No symptoms or risk factors identified. Assessment: 20:31 General: Appears comfortable, well groomed, well developed, well nourished, Behavior is me1 calm, cooperative, appropriate for age, Reports High blood pressure reading 166/84. Blood pressure has been running high for the last 2 days. Had a headache this afternoon, took tylenol, headache is gone. Denies chest pain/headache, weakness and numbness. Pain: Denies pain. Neuro: Level of Consciousness is awake, alert, obeys commands, Oriented to person, place, time, situation, Appropriate for age. Cardiovascular: Capillary refill < 3 seconds Patient's skin is warm and dry. Respiratory: Airway is patent Respiratory effort is even, unlabored, Respiratory pattern is regular, symmetrical. Vital Signs: 18:12 BP 192 / 86; Pulse 70; Resp 17; Temp 98(O); Pulse Ox 99% on R/A; Weight 99.79 kg; iw Height 5 ft. 10 in. ; Pain 0/10; 19:18 BP 214 / 83; Pulse 68; Resp 17; Pulse Ox 99% on R/A; me1 20:30 BP 143 / 60; Pulse 61; Resp 15; Pulse Ox 97% on R/A; me1 18:12 Body Mass Index 31.57 (99.79 kg, 177.8 cm) iw 18:12 Pain Scale: Adult iw ED Course: 18:00 Patient arrived in ED. im 18:12 Zaki Loving PA is PHCP. cp 18:12 Andre David DO is Attending Physician. cp 18:17 Triage completed. iw 18:19 Arm band placed on left wrist. iw 18:42 CT Head Brain wo Cont In Process Unspecified. EDMS 19:01 Sandy Aguilar, RN is Primary Nurse. me1 19:05 XRAY Chest (1 view) In Process Unspecified. EDMS 19:14 Inserted saline lock: 20 gauge in left forearm, using aseptic technique. me1 19:15 Basic Metabolic Panel Sent. me1 19:15 CBC with Diff Sent. me1 19:15 Magnesium Sent. me1 19:15 NT PRO-BNP Sent. me1 19:15 PT-INR Sent. me1 19:15 Troponin HS Sent. me1 19:15 Urinalysis W/Microscopic Sent. me1 20:31 Patient has correct armband on for positive identification. Bed in low position. Call me1 light in reach. Side rails up X2. Provided Education on: POC. Verbalized understanding, . 20:31 No provider procedures requiring assistance completed. me1 20:32 Cristian Ding MD is Referral Physician. cp 20:41 IV discontinued, intact, bleeding controlled, No redness/swelling at site. Pressure me1 dressing applied. Administered Medications: 19:18 Drug: cloNIDine PO 0.2 mg PO once Route: PO; me1 20:28 Follow up: Response: No adverse reaction me1 20:35 Follow up: Response: Marked relief of symptoms me1 20:29 Not Given (bp 143/60, hr 61): [id number] mg PO once me1 20:29 Not Given (bp 143/60, hr 61): [id number] mg IVP once; For SBP > 190 mmHg. Hold if me1 less than 160 mmHg. Medication: 20:31 VIS not applicable for this client. me1 Outcome: 20:32 Discharge ordered by MD. cp 20:43 Discharged to home ambulatory, with family, me1 20:43 Condition: stable 20:43 Discharge instructions given to patient, family, Instructed on discharge instructions, follow up and referral plans. Demonstrated understanding of instructions, follow-up care, medications, Prescriptions given X 1, 20:45 Patient left the ED. me1 Signatures: Dispatcher [employer] Cheyenne Luu RN RN iw Zaki Loving PA PA Dari Chris Michelle, RN RN me1 Corrections: (The following items were deleted from the chart) 18:17 18:12 BP 192 / 86; Pulse 70bpm; Resp 17bpm; Pulse Ox 99% RA; Temp 98F Oral; iw iw 20:31 18:12 Chief complaint: Patient states: High blood pressure reading 166/84. Blood me1 pressure has been running high for the last 2 days. Had a headache this afternoon, took tylenol, headache is gone. Denies chest pain/headache, weakness and numbness. iw
--- NOTE | 2023-10-20 20:33 | EDPHYS ---
Physician Documentation [facility] Name: Castro Tam Age: 73 yrs Sex: Male : 1950 Arrival Date: 10/20/2023 Time: 17:57 Bed 12 Private MD: ED Physician Andre David HPI: 10/20 18:23 This 73 yrs old Male presents to ER via Ambulatory with complaints of High Blood cp Pressure - has numbers. 18:23 The patient has elevated blood pressure and discovered this at home, with a home cp device. Onset: The symptoms/episode began/occurred 2 day(s) ago. Associated signs and symptoms: Pertinent positives: headache. Severity of symptoms: At its worst the blood pressure was 180 mm Hg, in the emergency department the blood pressure is are actually worse, 192 mm Hg. Historical: - Allergies: 18:17 Azithromycin; iw 18:17 Clindamycin; iw 18:17 PENICILLINS; iw 18:17 lampocil; iw - PMHx: 18:17 Hypertensive disorder; Diverticulitis; POTS syndrome (Unknown); iw - PSHx: 18:17 Cholecystectomy; iw - Immunization history:: Client reports receiving the 2nd dose of the Covid vaccine. - Social history:: Smoking status: Patient denies any tobacco usage or history of. ROS: 18:25 Cardiovascular: Negative for chest pain, palpitations, cp 18:25 Neuro: Positive for headache, Negative for altered mental status, dizziness, numbness, speech changes, syncope, weakness, 18:25 Constitutional: Negative for body aches, chills, fever, poor PO intake, cp 18:25 Eyes: Negative for injury, pain, redness, and discharge, cp 18:25 ENT: Negative for drainage from ear(s), ear pain, sore throat, difficulty swallowing, difficulty handling secretions, 18:25 Respiratory: Negative for cough, shortness of breath, wheezing, 18:25 Abdomen/GI: Negative for abdominal pain, nausea, vomiting, and diarrhea, 18:25 : Negative for urinary symptoms, 18:25 All other systems are negative, Exam: 18:30 Constitutional: The patient appears in no acute distress, alert, awake, cp non-diaphoretic, non-toxic, well developed, well nourished, 18:30 Head/Face: Normocephalic, atraumatic. cp 18:30 Eyes: Periorbital structures: appear normal, Pupils: equal, round, and reactive to light and accomodation, Extraocular movements: intact throughout, Conjunctiva: normal, no exudate, no injection, Sclera: no appreciated abnormality, Lids and lashes: appear normal, bilaterally, 18:30 ENT: External ear(s): are unremarkable, Nose: is normal, Mouth: Lips: moist, Oral mucosa: pink and intact, moist, Posterior pharynx: Airway: no evidence of obstruction, patent, 18:30 Neck: ROM/movement: is normal, is supple, without pain, no range of motions cp limitations, 18:30 Chest/axilla: Inspection: normal, Palpation: crepitus, is not appreciated, tenderness, cp is not appreciated, 18:30 Cardiovascular: Rate: normal, Rhythm: regular, Edema: ankle edema, that is very mild, JVD: is not appreciated, 18:30 Respiratory: the patient does not display signs of respiratory distress, Respirations: normal, no use of accessory muscles, no retractions, labored breathing, is not present, Breath sounds: are clear throughout, no decreased breath sounds, no stridor, no wheezing, 18:30 Abdomen/GI: Inspection: abdomen appears normal, Palpation: abdomen is soft and non-tender, in all quadrants, 18:30 Back: pain, is absent, ROM is normal, 18:30 Skin: cellulitis, is not appreciated, no rash present. 18:30 Neuro: Orientation: to person, place \T\ time. Mentation: is normal, Motor: moves all fours, strength is normal, Sensation: is normal, Gait: is steady, 19:34 ECG was reviewed by the Attending Physician. cp Vital Signs: 18:12 BP 192 / 86; Pulse 70; Resp 17; Temp 98(O); Pulse Ox 99% on R/A; Weight 99.79 kg; iw Height 5 ft. 10 in. ; Pain 0/10; 19:18 BP 214 / 83; Pulse 68; Resp 17; Pulse Ox 99% on R/A; me1 20:30 BP 143 / 60; Pulse 61; Resp 15; Pulse Ox 97% on R/A; me1 18:12 Body Mass Index 31.57 (99.79 kg, 177.8 cm) iw 18:12 Pain Scale: Adult iw MDM: 18:23 Patient medically screened. cp 20:30 Data reviewed: vital signs, nurses notes, lab test result(s), EKG, radiologic studies, cp CT scan, plain films. 20:30 Differential diagnosis: hypertensive crisis, Malignant HTN, CVA, intracerebral cp hemorrhage. Consideration of Admission/Observation Escalation of care including admission/observation considered. I considered the following discharge prescriptions or medication management in the emergency department Medications were administered in the Emergency Department. See MAR. Independent interpretation of the following test(s) in the Emergency Department EKG: See my EKG interpretation above. Counseling: I had a detailed discussion with the patient and/or guardian regarding the historical points, exam findings, and any diagnostic results supporting the discharge/admit diagnosis, lab results, radiology results, the need for outpatient follow up, for definitive care, an drilling field specialist, to return to the emergency department if symptoms worsen or persist or if there are any questions or concerns that arise at home. Response to treatment: the patient's symptoms have markedly improved after treatment, and as a result, I will discharge patient. 10/20 18:19 Order name: Urinalysis W/Microscopic; Complete Time: 19:29 10/20 19:55 Interpretation: Reviewed. 10/20 18:19 Order name: Basic Metabolic Panel; Complete Time: 19:53 10/20 19:53 Interpretation: Normal except: GLUC 136; GFR 75. 10/20 18:19 Order name: CBC with Diff; Complete Time: 19:29 10 19:55 Interpretation: EOSINOPHIL % 5.5; Reviewed. 10/20 18:19 Order name: Magnesium; Complete Time: 19:53 10/20 18:19 Order name: NT PRO-BNP; Complete Time: 19:53 10/20 18:19 Order name: PT-INR; Complete Time: 19:29 10 19:56 Interpretation: Reviewed. 10/20 18:19 Order name: Troponin HS; Complete Time: 19:53 10/20 19:53 Interpretation: Reviewed. 10/20 18:19 Order name: CT Head Brain wo Cont; Complete Time: 19:29 /10 19:29 Interpretation: Report reviewed. 10/20 18:19 Order name: XRAY Chest (1 view); Complete Time: 19:29 10/20 19:29 Interpretation: Report review. 10/20 18:19 Order name: EKG; Complete Time: 18:19 10/20 18:19 Order name: Cardiac monitoring; Complete Time: 20:11 10/20 18:19 Order name: EKG - Nurse/Tech; Complete Time: 20:11 10/20 18:19 Order name: IV Saline Lock; Complete Time: 19:15 10/20 18:19 Order name: Labs collected and sent; Complete Time: 19:15 10/20 18:19 Order name: O2 Per Protocol; Complete Time: 19:15 10/20 18:19 Order name: O2 Sat Monitoring; Complete Time: 19:15 10/20 20:03 Order name: Blood Pressure Recheck; Complete Time: 20:28 EC:34 Rate is 62 beats/min. Rhythm is regular. AL interval is normal. QRS interval is cp prolonged at 108 msec. QT interval is normal. T waves are Inverted in lead aVR. Interpreted by me. Reviewed by me. Administered Medications: 19:18 Drug: cloNIDine PO 0.2 mg PO once Route: PO; me1 20:28 Follow up: Response: No adverse reaction me1 20:35 Follow up: Response: Marked relief of symptoms me1 20:29 Not Given (bp 143/60, hr 61): [id number] mg PO once me1 20:29 Not Given (bp 143/60, hr 61): [id number] mg IVP once; For SBP > 190 mmHg. Hold if me1 less than 160 mmHg. Disposition: 19:12 I was immediately available on-site in the Emergency Department for consultation in the ms3 care of the patient. Disposition Summary: 10/20/23 20:32 Discharge Ordered Notes: Location: Home cp Condition: Stable cp Diagnosis - Hypertensive heart disease without heart failure cp Followup: cp - With: Cristian Ding MD - When: 2 - 3 days - Reason: Recheck today's complaints Discharge Instructions: - Discharge Summary Sheet cp - Hypertension, Adult cp - Form - Blood Pressure Record Sheet cp - How to Take Your Blood Pressure cp Forms: - Medication Reconciliation Form cp - Thank You Letter cp - Antibiotic Education cp - Prescription Opioid Use cp - Patient Portal Instructions cp - Leadership Thank You Letter cp Prescriptions: - clonidine HCl 0.2 mg Oral tablet - take 1 tablet ORAL route daily as needed for hypertensive emergency, systolic cp pressure greater than 180; 30 tablet; Refills: 0, Product Selection Permitted Signatures: Dispatcher [employer] Cheyenne Luu RN RN iw Zaki Loving PA PA cp Andre David DO DO ms3 Sandy Aguilar RN RN me1 Corrections: (The following items were deleted from the chart) 19:55 19:29 Reviewed. cp cp
[2023-10-20 21:13] VITALS: TEMP 98
[2023-10-20 21:21] VITALS: BP 143/60; O2SAT 97
--- NOTE | 2023-10-22 13:47 | EKG ---
Test Date: 2023-10-20 Test Time: 19:29:59 Biological Science Technician: RACHEL MEASUREMENT RESULTS: Intervals: Rate: 62 MN: 200 QRSD: 108 QT: 416 QTc: 422 [place]: P: 36 MN: 200 QRS: 0 T: 24 INTERPRETIVE STATEMENTS: Normal sinus rhythm Normal ECG Compared to ECG 02/15/2022 23:30:33 No significant changes Electronically Signed On 10-22-23 13:41:17 LAPPING MACHINE OPERATOR by Carlos Barlow
== END 2023-10-20 20:45 | disposition home or self-care (01) ==
LOC: ER 17:57
DX: I11.9 Hypertensive heart disease without heart failure (principal); I10 Essential (primary) hypertension; R51.9 Headache, unspecified; Z88.1 Allergy status to other antibiotic agents; Z88.5 Allergy status to narcotic agent; Z88.8 Allergy status to other drugs, medicaments and biological substances
CPT/HCPCS: 36415; 70450; 71045; 80048; 81001; 83735; 83880; 84484; 85025; 85610; 93005; 99284